=== PATIENT | male | born 1945 | race Caucasian/White ===

== ENCOUNTER → 2016-08-03 | Outpatient (CLI) | payer MEDICARE ==
--- NOTE | 2016-08-03 13:16 | CT ---
EXAMINATION TYPE: CT CHEST WO CON DATE OF EXAM: 08/03/2016 COMPARISON: CT June 27, 2013 HISTORY: COPD. asbestosis TECHNIQUE: Departmental supine and prone noncontrast end-inspiration HRCT protocol. CT DLP: 1249.5 mGycm Automated exposure control for dose reduction was used. FINDINGS: Airways: Normal in caliber and morphology. Lung parenchyma: There is no groundglass opacity to suggest active alveolitis. There is no mosaic per fusion pattern. There is no consolidation or major atelectasis. Also, there is no end-stage honeycomb lung or other cicatrizing change. Bilateral scattered lung nodules are redemonstrated, the largest two situated in the right mid lung zone and measuring 9 mm and 7.5 mm. These are seen on the prior CT of 3 years ago; they appear to be unaltered and are likely to be granulomas. Mediastinum: There are scattered calcifications in the mediastinum, consistent with granulomas. There are no enlarged lymph nodes. No cardiomegaly. Pericardial effusion is negative. Mediastinal contents are otherwise unremarkable. Pleural spaces: There are a few scattered subtle areas of focal pleural thickening without calcificat ion, which are stable in appearance when compared to the CT from 3 years ago. There are no pleural ef fusions. Soft tissues: Splenic ossifications are noted, consistent with granulomas. No other findings. Skeletal structures: No focal lesions. IMPRESSION: 1. NO HRCT EVIDENCE OF ACUTE OR CHRONIC LUNG PARENCHYMAL PROCESS. 2. STABLE APPEARING SUBCENTIMETER PULMONARY NODULES AND SUBTLE MULTIFOCAL PLEURAL THICKENING.
== END | disposition home or self-care (01) ==
LOC: RADCTMAIN 09:14
PROVIDERS: ATTEND Internal Medicine Critical Care Medicine
DX: J92.9 Pleural plaque without asbestos (principal); R91.1 Solitary pulmonary nodule
CPT/HCPCS: 71250

== ENCOUNTER → 2016-11-02 | Outpatient (CLI) | payer MEDICARE ==
--- NOTE | 2016-11-02 07:57 | XR ---
EXAMINATION TYPE: XR chest 2V DATE OF EXAM: 11/02/2016 COMPARISON: Chest x-ray August 03, 2016. Chest x-ray December 19, 2013. HISTORY: History of COPD with fever and body aches. TECHNIQUE: Frontal and lateral views of the chest are obtained. FINDINGS: Background mild chronic emphysematous change is redemonstrated. There is no focal air spac e opacity, pleural effusion, or pneumothorax seen. Scattered small nodules seen on high resolution C T are less well seen on plain films The cardiac silhouette size remains within normal limits. The o sseous structures are intact. IMPRESSION: Chronic changes without acute infiltrate identified.
== END | disposition home or self-care (01) ==
LOC: RADXRMAIN 07:34
PROVIDERS: ATTEND Physician Assistant
DX: R91.8 Other nonspecific abnormal finding of lung field (principal); R50.9 Fever, unspecified
CPT/HCPCS: 71020

== ENCOUNTER → 2017-03-07 | Outpatient (CLI) | payer MEDICARE ==
[2017-03-07 11:46] LABS: Blood Urea Nitrogen 20 mg/dL (9-20)
== END | disposition home or self-care (01) ==
LOC: LABWHC1 10:59
PROVIDERS: ATTEND Physical Medicine & Rehabilitation
DX: Z01.812 Encounter for preprocedural laboratory examination (principal); N28.9 Disorder of kidney and ureter, unspecified; M25.552 Pain in left hip; M47.27 Other spondylosis with radiculopathy, lumbosacral region
CPT/HCPCS: 36415; 82565; 84520

== ENCOUNTER → 2017-03-25 | Outpatient (CLI) | payer MEDICARE ==
--- NOTE | 2017-03-25 13:45 | XR ---
EXAMINATION TYPE: XR chest 2V DATE OF EXAM: 03/25/2017 COMPARISON: 11/02/2016 HISTORY: Cough and congestion for 8 days TECHNIQUE: Frontal and lateral views of the chest are obtained. FINDINGS: There is no focal air space opacity, pleural effusion, or pneumothorax seen. The cardiac silhouette size is upper limits of normal. The osseous structures are intact. Incidentally noted pr ominent right epicardial fat pad. Pulmonary hyperinflation likely relates to underlying COPD. Mild mu ltilevel degenerative changes of the thoracic spine are noted. IMPRESSION: No acute cardiopulmonary process. Radiographic sequela of COPD.
== END | disposition home or self-care (01) ==
LOC: RADXRMAIN 13:12
PROVIDERS: ATTEND Family Medicine
DX: J44.9 Chronic obstructive pulmonary disease, unspecified (principal)
CPT/HCPCS: 71046

== ENCOUNTER → 2017-09-16 | Outpatient (CLI) | payer MEDICARE ==
--- NOTE | 2017-09-16 10:36 | US ---
EXAMINATION TYPE: US carotid duplex BILAT DATE OF EXAM: 09/16/2017 COMPARISON: NONE CLINICAL HISTORY: I10 Hypertension, R42 Dizziness. Pt states dizziness, left arm numbness EXAM MEASUREMENTS: RIGHT: Peak Systolic Velocity (PSV) cm/sec ----- Right CCA: 80.0 ----- Right ICA: 88.8 ----- Right ECA: 88.8 ICA/CCA ratio: 1.1 RIGHT: End Diastole cm/sec ----- Right CCA: 13.6 ----- Right ICA: 27.1 ----- Right ECA: 9.5 LEFT: Peak Systolic Velocity (PSV) cm/sec ----- Left CCA: 88.8 ----- Left ICA: 98.7 ----- Left ECA: 88.8 ICA/CCA ratio: 1.1 LEFT: End Diastole cm/sec ----- Left CCA: 15.0 ----- Left ICA: 39.2 ----- Left ECA: 7.3 VERTEBRALS (direction of flow): Right Vertebral: Antegrade Left Vertebral: Antegrade Rhythm: Normal No significant stenosis seen, Incidental finding right thyroid nodule= 2.2 cm IMPRESSION: 1. Mild degree of grayscale atheromatous plaquing with no sonographically evident hemodynamically sig nificant stenosis within either visualized carotid arterial system. 2. Incidentally noted right thyroid 2.2 cm nodule that could be fully characterized with thyroid ultr asound.
--- NOTE | 2017-09-16 10:39 | XR ---
EXAMINATION TYPE: XR cervical spine limited DATE OF EXAM: 09/16/2017 TECHNIQUE: Frontal, lateral, and open mouth view of the cervical spine are obtained. HISTORY: I10 Hypertension, R42 Dizziness COMPARISON: None FINDINGS: The cervical spine is visualized in its entirety from C1 thru the top of T1 level, it is s atisfactory in alignment without evidence of acute fracture or dislocation. There is straightening of usual cervical lordosis. Intervertebral disc space narrowing is seen at C5-C6 and to a lesser degree at C6-C7. There is multilevel degenerative disc disease demonstrated as anterior osteophytes, endpla te sclerosis, facet arthropathy and uncovertebral hypertrophy. Overall this is moderate in degree. Th e pre-vertebral soft tissue appears within normal limits, inferiorly upper limits of normal. The C1- C2 articulation is within normal limits on the open mouth view. IMPRESSION: 1. No acute fracture or dislocation is seen in the cervical spine. 2. Moderate multilevel degenerative disc disease of the cervical spine most pronounced at C5-C6 and C 6-C7.
== END | disposition home or self-care (01) ==
LOC: RADXRMAIN 09:31
PROVIDERS: ATTEND Family Medicine
DX: M50.322 Other cervical disc degeneration at C5-C6 level (principal); I65.23 Occlusion and stenosis of bilateral carotid arteries
CPT/HCPCS: 72040; 93880

== ENCOUNTER → 2017-09-19 | Outpatient (CLI) | payer MEDICARE ==
--- NOTE | 2017-09-19 10:54 | NM ---
EXAMINATION TYPE: SC stress cardiolite complete DATE OF EXAM: 09/19/2017 COMPARISON: NONE HISTORY: Hypertension and dizziness per order. Additional history of diabetes, prior tobacco use, hyp ercholesteremia, COPD, family history of heart attack, and prior heart catheterization presents with difficulty in breathing and abnormal EKG with left arm numbness all per patient. TECHNIQUE: After the intravenous administration of 10 mCi Tc 99m Sestamibi - Rest images obtained 50 minutes post injection. The patient exercised using a BRADEN protocol and 1 minute prior to peak ex ercise was injected with 25.4 mCi Tc 99m Sestamibi - Stress images obtained 15 minutes post injection . FINDINGS: Targeted heart rate was achieved during performance of the study. Review of stress and rest SPECT slick ges demonstrates large area of diminished uptake centered in the posterior left ventricular wall exte nding into septum and lateral wall as well as cardiac apex felt to reflect large area of old infarct. There is no convincing evidence for reversible ischemia. Gated analysis shows overall ejection frac tion of 42 % diminished from the normal range. 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 Clinical and EKG correlation advised.
--- NOTE | 2017-09-19 10:58 | EST ---
EXERCISE STRESS AGE: 71 SEX: M HT: 5'11 WT: 230 pounds PROTOCOL: Stress Cardiolite Study. STAGE: II DURATION OF EXERCISE: 6:30 HEART RATE REST: 68 BLOOD PRESSURE REST: 135/72 MAXIMUM HEART RATE ACHIEVED: 136 MAXIMUM BLOOD PRESSURE: 184/86 85% MPHR: 125 100% MPHR: 147 METS: 7.9 INDICATIONS: Abnormal EKG and left arm numbness CLINICAL INFORMATION: Baseline EKG shows sinus rhythm with right bundle branch block. Patient exercised on Mango protocol for a total of 6.5 minutes achieving 8 METS, 92% of predicted maximal heart rate without chest pain or diagnostic ST-segment depression. Occasional PVCs were noted during exercise. CONCLUSIONS: 1. Average exercise tolerance. 2. Inconclusive EKG part of the stress test due to baseline EKG abnormalities. 3. Cardiolite portion of the stress test will be reported separately. MMODL / IJN: [id number] /
== END | disposition home or self-care (01) ==
LOC: RADNMMAIN 08:20
PROVIDERS: ATTEND Family Medicine
DX: I10 Essential (primary) hypertension (principal)
CPT/HCPCS: 93017; 78452; A9500

== ENCOUNTER → 2017-10-05 | Outpatient (CLI) | payer MEDICARE ==
[2017-10-05 06:57] LABS: HCT 42.1 % (39.0-53.0); HGB 13.6 gm/dL (13.0-17.5); MCH 28.5 pg (25.0-35.0); MCHC 32.4 g/dL (31.0-37.0); MCV 87.8 fL (80.0-100.0); Mean Platelet Volume 7.1; Platelet Count 354 k/uL (150-450); RDW 13.6 % (11.5-15.5); WBC 16.4 k/uL (3.8-10.6)
[2017-10-05 07:20] LABS: Anion Gap 9 mmol/L; Blood Urea Nitrogen 26 mg/dL (9-20); Carbon Dioxide 26 mmol/L (22-30); Chloride 108 mmol/L (98-107); Glucose 125 mg/dL (74-99); Magnesium 1.8 mg/dL (1.6-2.3); Potassium 4.7 mmol/L (3.5-5.1); Sodium 143 mmol/L (137-145)
== END | disposition home or self-care (01) ==
LOC: LABPAT 06:36
PROVIDERS: ATTEND Internal Medicine Interventional Cardiology
DX: Z01.812 Encounter for preprocedural laboratory examination (principal); I10 Essential (primary) hypertension; E11.9 Type 2 diabetes mellitus without complications; E78.2 Mixed hyperlipidemia
CPT/HCPCS: 36415; 80051; 82565; 82947; 83735; 84520; 85027

== ENCOUNTER 2017-10-12 09:51 | Day surgery (SDC) | payer MEDICARE ==
[2017-10-06 14:45] VITALS: BMI 33.0
[~2017-10-12 09:51] MED LIST: ALPRAZolam 0.25 MG TAB PO PRN; ALPRAZolam 0.5 MG TAB PO PRN; ASPIRIN 325 MG TAB PO STA; ATORVASTATIN 80 MG TAB PO STA; NITROGLYCERIN SL TABS 0.4 MG TAB SUBLINGUAL PRN; SODIUM CHLORIDE 0.9% 1,000 ML in EMPTY BAG 1 BAG IV ONE
[2017-10-12] MEDS ORDERED: METOPROLOL TARTRATE 12.5 MG TAB PO STA (10:28)
[2017-10-12] MEDS ORDERED: LOSARTAN 50 MG TAB PO STA (10:28)
[2017-10-12 10:43] VITALS: RESP 16; TEMP 97.6
[2017-10-12 10:57] LABS: Basophils % (A) 1 %; Eosinophils # (A) 0.2 k/uL (0-0.7); Eosinophils % (A) 2 %; HCT 44.4 % (39.0-53.0); HGB 14.1 gm/dL (13.0-17.5); Lymphocytes # (A) 1.7 k/uL (1.0-4.8); Lymphocytes % (A) 20 %; MCH 28.1 pg (25.0-35.0); MCHC 31.8 g/dL (31.0-37.0); MCV 88.3 fL (80.0-100.0); Monocytes # (A) 0.8 k/uL (0-1.0); Monocytes % (A) 9 %; Neutrophils # (A) 5.8 k/uL (1.3-7.7); Neutrophils % (A) 66 %; Platelet Count 282 k/uL (150-450); RBC 5.03 m/uL (4.30-5.90); RDW 13.6 % (11.5-15.5); WBC 8.8 k/uL (3.8-10.6)
[2017-10-12] MEDS ORDERED: diphenhydrAMINE 50 MG/ML 1 ML VIAL ONE (11:48)
[2017-10-12] MEDS ORDERED: MIDAZOLAM 2 MG/2 ML VIAL ONE (11:48)
[2017-10-12] MEDS ORDERED: LIDOCAINE 1% INJ 10MG/ML (20 ML MDV) ONE (11:48)
[2017-10-12] MEDS ORDERED: VERAPAMIL 2.5 MG/ML 2 ML AMP ONE (11:48)
[2017-10-12] MEDS ORDERED: diphenhydrAMINE 50 MG/ML 1 ML VIAL IM ONE (12:06)
[2017-10-12] MEDS ORDERED: LIDOCAINE 1% INJ 10MG/ML (20 ML MDV) SQ ONE (12:06)
[2017-10-12] MEDS ORDERED: MIDAZOLAM 2 MG/2 ML VIAL IVP ONE (12:07)
[2017-10-12] MEDS ORDERED: VERAPAMIL SYRINGE (5 MG/10 ML) INTRAARTER ONE (12:08)
[2017-10-12] MEDS ORDERED: HEPARIN SODIUM 1,000 UN/ML (10ML VL) IVPB ONE (12:11)
[2017-10-12] MEDS ORDERED: IOPAMIDOL-370 100ML BTL INJ ONE (12:22)
[2017-10-12] MEDS ORDERED: RX INFO: IV CONTRAST WAS GIVEN 1 EACH MISC MISCELLANE PRN (12:37)
[2017-10-12] MEDS ORDERED: SODIUM CHLORIDE 0.9% 1,000 ML IV SCH (12:45)
--- NOTE | 2017-10-12 16:30 | CC ---
CARDIAC CATHETERIZATION REPORT DATE OF SERVICE: 10/12/2017 PROCEDURE: Left heart catheterization, coronary angiography and left ventriculography. PERFORMED BY: Dr. Gerald Suggs. Moderate conscious sedation time was 21 minute. Patient was administered Versed and Benadryl. His oxygen saturation, hemodynamics and EKG were monitored closely. CLINICAL INFORMATION: Mr. Afshin Garza is a 72-year-old gentleman with type 2 diabetes, hypertension, history of non-Hodgkin's lymphoma, hyperlipidemia, who had an are unremarkable cardiac cath in December 2013, presented to the hospital with episode of chest pain and then went on to have an abnormal stress test with inferoposterior area of fixed defect with hypokinesia, was therefore advised cardiac catheterization. There was concern that he may have ischemia or infarction in this region. Risks, benefits, options were explained and patient was brought in for the procedure electively. PROCEDURE NOTE: Under strict aseptic precautions and local anesthesia, a 6-Emirati introducer was placed in the right radial artery. Using a JR 4 and JL 3.5 diagnostic catheters of 5-Emirati caliber I performed coronary angiography and a pigtail catheter was used to perform an LV-gram. The patient tolerated procedure well without complication. The sheath was taken out and TR band applied as per protocol. Good hemostasis was secured. Saturation in the fingers of the right hand was 94%. CARDIAC CATHETERIZATION FINDINGS: The left ventricular end-diastolic pressure was 12 mmHg and there was no gradient across aortic valve. CORONARY ANGIOGRAPHY FINDINGS: RIGHT CORONARY ARTERY: Technically a small nondominant vessel has no significant disease, has minor irregularities and supplies a limited amount of myocardium. LEFT MAIN CORONARY ARTERY: This is a short patent disease-free vessel that bifurcates into LAD and circumflex. LEFT ANTERIOR DESCENDING CORONARY ARTERY: Good caliber vessel extends along the anterior wall gives off septal and diagonal branches runs all the way to the apex supplying a sizable amount of myocardium. No significant disease is noted in the LAD system. LEFT POSTERIOR CIRCUMFLEX CORONARY ARTERY : Technically this is a very dominant vessel, gives off a small first obtuse marginal. There is a second obtuse marginal which is large in caliber and distribution, runs laterally, tortuous, supplies a fairly substantial amount of myocardium. The continuation of circumflex in the AV groove is free of significant disease and then distally it trifurcates into 3 different branches all of which have minor irregularities. No significant disease. The entire circumflex system is dominant and has no significant disease. LEFT VENTRICULOGRAM: This was performed in 30 degree HOANG projection revealed left ventricle is of normal size with good systolic function without segmental wall motion abnormality. Ejection fraction is about 60% by visual inspection. There is no mitral regurgitation. FINAL IMPRESSION: This patient has a left dominant system, normal filling pressures. Ejection fraction of 60%. No significant obstructive disease is noted. Findings were discussed with the patient and his son. He will be discharged later on today if stable. Results were also communicated by telephone with Dr. Ewing's physician assistant refinery operator. MMCHARBELL / IJN: [id number] /
[2017-10-12 16:36] VITALS: BP 145/77; PULSE 75
[2017-10-12 17:06] LABS: Glucose,Whole Blood 203 mg/dL (75-99)
[2017-10-12 17:06] LABS: Glucose,Whole Blood 123 mg/dL (75-99)
== END 2017-10-12 17:38 | disposition home or self-care (01) ==
LOC: CATHCVL 09:51
PROVIDERS: ATTEND Internal Medicine Interventional Cardiology
DX: I77.1 Stricture of artery (principal); R94.39 Abnormal result of other cardiovascular function study; R07.89 Other chest pain; E78.5 Hyperlipidemia, unspecified; E78.00 Pure hypercholesterolemia, unspecified; E11.9 Type 2 diabetes mellitus without complications; Z87.891 Personal history of nicotine dependence; Z88.0 Allergy status to penicillin; Z88.8 Allergy status to other drugs, medicaments and biological substances; Z85.72 Personal history of non-Hodgkin lymphomas; I10 Essential (primary) hypertension; Z79.84 Long term (current) use of oral hypoglycemic drugs; Z79.82 Long term (current) use of aspirin; Z79.899 Other long term (current) drug therapy
CPT/HCPCS: 93458; 85025; C1894; J2250; J1200; J2001; J1644; Q9967

== ENCOUNTER → 2019-07-10 | Outpatient (CLI) | payer MEDICARE | END | disposition home or self-care (01) | LOC: LABWHC1 09:11 | PROVIDERS: ATTEND Orthopaedic Surgery Hand Surgery | DX: U07.1 COVID-19 (principal) | CPT/HCPCS: 87635 ==

== ENCOUNTER → 2019-07-30 | Outpatient (CLI) | payer MEDICARE ==
[2019-07-30 09:02] LABS: Appearance,Urine Clear (Clear); Bilirubin,Urine Negative (Negative); Blood,Urine Negative (Negative); Color,Urine Light Yellow; Glucose,Urine (UA) Negative (Negative); Ketones,Urine Negative (Negative); Leukocyte Esterase,Urine Negative (Negative); Nitrite,Urine Negative (Negative); PH, Urine 5.5 (5.0-8.0); Protein,Urine Negative (Negative); Specific Gravity,Urine 1.017 (1.001-1.035); Urobilinogen,Urine <2.0 mg/dL (<2.0)
[2019-07-30 09:09] LABS: Partial Thromboplastin Time 25.3 sec (22.0-30.0); Prothrombin Time 10.6 sec (9.0-12.0)
--- NOTE | 2019-07-30 09:09 | XR ---
EXAMINATION TYPE: XR chest 2V DATE OF EXAM: 07/30/2019 COMPARISON: 03/25/2017 HISTORY: Presurgical evaluation TECHNIQUE: Frontal and lateral views of the chest are obtained. FINDINGS: Minimal strand-like linear densities at the lung bases There is no focal air space opacity , pleural effusion, or pneumothorax seen. Flattening the diaphragms is seen suggesting underlying CHIP MUCKER D. The cardiac silhouette size is within normal limits. The osseous structures are intact. Moderate degenerative disc disease of the thoracic spine. IMPRESSION: Strand-like densities at the lung bases favor subsegmental atelectasis. Radiographic seq uela of underlying COPD.
[2019-07-30 09:13] LABS: Basophils % (A) 0 %; Eosinophils # (A) 0.1 k/uL (0-0.7); Eosinophils % (A) 1 %; HCT 41.9 % (39.0-53.0); Lymphocytes # (A) 1.7 k/uL (1.0-4.8); Lymphocytes % (A) 21 %; MCH 29.8 pg (25.0-35.0); MCHC 33.4 g/dL (31.0-37.0); MCV 89.5 fL (80.0-100.0); Mean Platelet Volume 7.4; Monocytes # (A) 0.5 k/uL (0-1.0); Monocytes % (A) 6 %; Neutrophils # (A) 5.5 k/uL (1.3-7.7); Neutrophils % (A) 69 %; Platelet Count 277 k/uL (150-450); RBC 4.68 m/uL (4.30-5.90); RDW 13.3 % (11.5-15.5); WBC 7.9 k/uL (3.8-10.6)
[2019-07-30 09:16] LABS: African American GFR (CKD) >90 (>60 ml/min/1.73 sqM); Anion Gap 8 mmol/L; Blood Urea Nitrogen 25 mg/dL (9-20); Calcium 9.7 mg/dL (8.4-10.2); Carbon Dioxide 25 mmol/L (22-30); Chloride 104 mmol/L (98-107); Glucose 130 mg/dL (74-99); Non-African American GFR(CKD) >90 (>60 ml/min/1.73 sqM); Sodium 137 mmol/L (137-145)
== END | disposition home or self-care (01) ==
LOC: LABPAT 08:08
PROVIDERS: ATTEND Orthopaedic Surgery Orthopaedic Surgery of the Spine
DX: Z01.818 Encounter for other preprocedural examination (principal); J44.9 Chronic obstructive pulmonary disease, unspecified; Z79.01 Long term (current) use of anticoagulants
CPT/HCPCS: 36415; 71046; 80048; 81003; 85025; 85610; 85730; 87070

== ENCOUNTER 2019-08-08 09:08 | Observation (INO) | payer MEDICARE ==
[2019-08-06 16:12] VITALS: BMI 34.0
[~2019-08-08 09:08] MED LIST changes: -ALPRAZolam 0.25 MG TAB PO PRN; -ALPRAZolam 0.5 MG TAB PO PRN; -ASPIRIN 325 MG TAB PO STA; -ATORVASTATIN 80 MG TAB PO STA; -NITROGLYCERIN SL TABS 0.4 MG TAB SUBLINGUAL PRN; +ONDANSETRON 4 MG/2 ML VIAL IVP ONE; -SODIUM CHLORIDE 0.9% 1,000 ML in EMPTY BAG 1 BAG IV ONE; +SODIUM CHLORIDE 0.9% IRRIGATIO 1,000 ML IRRIGATION ONE; +fentaNYL (PF) 50 MCG/ML 2 ML AMP IV PRN
[2019-08-08] MEDS: LACTATED RINGERS 1,000 ML IV SCH (09:49)
[2019-08-08] MEDS ORDERED: LIDOCAINE 1% (10MG/ML) FOR IV START INTRADERMA ONE (09:49)
[2019-08-08 09:52] LABS: Glucose,Whole Blood 137 mg/dL (75-99)
[2019-08-08] MEDS ORDERED: LACTATED RINGERS 1,000 ML IV ONE ×3 (10:30→14:43)
[2019-08-08] MEDS ORDERED: PHENYLEPHRINE-0.9% NACL SYG 1 MG/10 ML SYRINGE ONE (11:17)
[2019-08-08] MEDS ORDERED: GLYCOPYRROLATE 0.2 MG/ML 2 ML VIAL ONE (11:17)
[2019-08-08] MEDS ORDERED: ceFAZolin 1,000 MG VIAL ONE (11:17)
[2019-08-08] MEDS ORDERED: SUCCINYLCHOLINE CHLORIDE 100 MG/5 ML SYR IV ONE (11:17)
[2019-08-08] MEDS ORDERED: WATER FOR INJECTION, STERILE 10 ML VIAL IV ONE (11:17)
[2019-08-08] MEDS ORDERED: LIDOCAINE 1% INJ 10MG/ML (20 ML MDV) ONE (11:17)
[2019-08-08] MEDS ORDERED: fentaNYL (PF) 50 MCG/ML 2 ML AMP ONE (11:17)
[2019-08-08] MEDS ORDERED: PROPOFOL 10 MG/ML 20 ML VIAL IV ONE (11:17)
[2019-08-08] MEDS ORDERED: SODIUM CHLORIDE 0.9% 100 ML BAG ONE (11:17)
[2019-08-08] MEDS ORDERED: ePHEDrine SULFATE/0.9% NACL/PF 50 MG/5 ML SYRINGE IV ONE (11:17)
[2019-08-08] MEDS ORDERED: HEPARIN SODIUM,PORCINE 10,000 UNIT/ML 1 ML VIAL ONE (11:17)
[2019-08-08] MEDS ORDERED: SODIUM CHLORIDE 0.9% IRRIG 1,000 ML BTL IRRIGATION ONE (11:17)
[2019-08-08] MEDS ORDERED: ROCURONIUM BROMIDE 10 MG/ML 5 ML VIAL IV ONE (11:17)
[2019-08-08] MEDS ORDERED: NEOSTIGMINE 1 MG/ML 10 ML VIAL ONE (11:17)
[2019-08-08] MEDS ORDERED: MIDAZOLAM 2 MG/2 ML VIAL ONE (11:17)
[2019-08-08] MEDS ORDERED: LIDOCAINE 0.5%-EPI 1:200,000 50 ML VIAL SQ ONE ×2 (11:51→11:58)
[2019-08-08] MEDS ORDERED: GELATIN SPONGE,ABSORB (LARGE) 1 EACH SPONGE TOPICAL ONE (11:57)
[2019-08-08] MEDS ORDERED: THROMBIN (BOVINE) 5,000 UNIT VIAL TOPICAL ONE (11:58)
[2019-08-08 15:09] LABS: Glucose,Whole Blood 157 mg/dL (75-99)
[2019-08-08] MEDS ORDERED: BUPIVACAINE (PF) 0.25% 30 ML VIAL SQ ONE ×2 (16:33)
--- NOTE | 2019-08-08 16:46 | FL ---
EXAMINATION TYPE: FL guidance operating room, XR lumbar spine 2 or 3V DATE OF EXAM: 08/08/2019 CLINICAL HISTORY: Low back pain. TECHNIQUE: Fluoroscopy. Intraoperative 2 views lumbar spine. COMPARISON: None. FINDINGS: Fluoroscopic guidance was provided during lumbar fusion surgical procedure performed by Dr Valentina Meyer. A total of 28 seconds of fluoroscopic time was utilized during the procedure and 8 spot int raoperative images are acquired. Intraoperative images acquired show localization at L4 level with eventual placement of posterior int erpedicular rods and screws from L1 through L5 levels bilaterally and artificial metallic disc materi al L4-L5 level. Satisfactory alignment is seen after surgical fixation on intraoperative images saved . IMPRESSION: As Above.
[2019-08-08] MEDS ORDERED: HYDROmorphone 1 MG/ML 1 ML SYRINGE IVP PRN (16:50)
[2019-08-08] MEDS ORDERED: MAGNESIUM HYDROXIDE 2,400 MG/10 ML CUP PO PRN (16:50)
[2019-08-08] MEDS ORDERED: BENZOCAINE/MENTHOL LOZENG 1 EACH LOZENGE MUCOUS MEM PRN (16:50)
[2019-08-08] MEDS ORDERED: HYDROcodone/APAP 5-325MG 1 EACH TAB PO PRN (16:50)
[2019-08-08] MEDS ORDERED: HYDROmorphone 0.5 MG/0.5 ML SYRINGE IVP PRN (16:50)
[2019-08-08] MEDS ORDERED: ONDANSETRON 4 MG/2 ML VIAL IVP PRN (16:50)
[2019-08-08] MEDS ORDERED: ALBUTEROL HFA INHALER INHALATION PRN (16:52)
--- NOTE | 2019-08-08 17:01 | P.OP ---
Date of Procedure: 08/08/19 Preoperative Diagnosis: Degenerative scoliosis, severe spinal stenosis L1-2 L2-3 and L3 4 L4 5, degenerative disc disease, lower extremity radiculopathy, lower extremity weakness, low back pain Postoperative Diagnosis: Same Anesthesia: GETA Pathology: none sent Condition: stable Disposition: PACU Description of Procedure: BRIEF OPERATIVE NOTE Preoperative Diagnosis:Degenerative scoliosis, severe spinal stenosis L1-2 L2-3 and L3 4 L4 5, degenerative disc disease, lower extremity radiculopathy, lower extremity weakness, low back pain Postoperative Diagnosis:Degenerative scoliosis, severe spinal stenosis L1-2 L2-3 and L3 4 L4 5, degenerative disc disease, lower extremity radiculopathy, lower extremity weakness, low back pain Procedure: Laminectomy and decompression with wide bilateral foraminotomy and partial medial facetectomy L1-2 L2-3 and L3 4 L4 5 Computer navigated Posterior lateral decompression and fusion L1-2 L2-3 and L3 4 L4 5 Transforaminal lumbar interbody fusion for a 360 fusion L3 4 L4 5 Discectomy for decompression L3 4 L4 5 Use of computer navigation for pedicle screw placement Placement of interbody graft L3 4 L4 5 Local autogenous bone grafting Use of Cell Saver Use of bone graft extenders Use of neuro monitoring Surgeon: Dr. Meyer Cigarette Making Machine Hopper Feeder: Miguel Angel Lau is present throughout the entire the case persistence during positioning, dissection, exposure, visualization, and all crucial elements of the case as well as closure. Anesthesia: General anesthesia per Dr. Rosenbaum Estimated blood loss: Approximately 1300 mL with 560 given back through Cell Saver Complications: None apparent Components implanted: K2M [place] pedicle screw system with use of 10 screws measuring 6.5 x 45 mm with 2 rods measuring 130 and 140 mm in length and one cross-link with a [place] interbody cage and [place] interbody peek cage. I also used 30 mL of DBX bone fibers as well as 10 mL of osteoamp bone graft substitute to supplement the local autogenous bone graft Disposition: To recovery room in good stable condition. OPERATIVE INDICATIONS The patient has had long-standing issues in their lower back and lower extremities. The patient has been having worsening of his pain in his back and his lower extremities over the past several years with significant worsening over the past several months. His found have a significant degenerative scoliosis of his lumbar spine with severe degenerative changes. He had severe spinal stenosis at L3 4 and L4 5 and moderate to severe stenosis L1-2 and L2-3. He was having symptoms of severe neurogenic claudication as well as radic ulopathy and weakness in his lower extremities. He was having worsening of his regular activities as well as his ability to do any sort of work. The patient has been through conservative treatment. He is not having any benefit despite aggressive conservative care. We discussed various treatment options including surgery, and the patient wishes to proceed with surgery We discussed the risk, patient's alternatives and benefits of surgery including but not limited to, risk of bleeding risk of infection, risk of need for further surgery, risk of decreased, loss of motion, muscle function, malunion nonunion, hardware failure, nerve damage, paralysis, heart attack, blindness and . OPERATIVE SUMMARY After discussing all the risks, patient alternatives and benefits at length, the patient elected to proceed with surgical intervention, signed informed consent, and presented for their procedure. The patient was seen and examined in the preoperative holding area and the surgical site was marked. The patient was given antibiotics and brought to the operating room. The patient was sedated and intubated by anesthesia in standard fashion. The patient was positioned on to the operating room table in a prone position on the appropriate frame which was well-padded and well molded. We were careful to pad any bony prominences and pressure points. We were careful to maintain the mónica ent's cervical spine and good neutral alignment and position throughout. The patient was prepped and draped in a normal standard fashion. An appropriate timeout and keystone protocol performed. We were able to proceed with the surgery. The local wound area was infiltrated with local anesthetic. An incision was made at the midline longitudinally over the appropriate levels. Dissection was taken down subcutaneously to the level of the fascia which was split midline from L1 to L5. Dissection was taken over the lamina bilaterally over the facet joints and to the transverse processes. Intraoperative x-ray was taken with C-arm which showed a marker at the appropriate level at L4 pedicle. With the appropriate level positively confirmed, we were able to proceed with placement of the pedicle holes and screws. The patient had all their twitches back. The wound was copiously irrigated and suctioned dry as had been done periodically throughout the case. I was able place a bony reference point at the spinous processes of L5 and take appropriate imaging with the C-arm for the Constant Contact computer navigation device. Was able to reference off the bony landmarks and used the computer navigation for placement of the pedicle screws from L1 to L5 bilaterally. Screw holes were established similarly at each level. A sharp awl was used to establish the starting hole. was able using appropriate tools with the computer navigation device. It was palpated and found to have good for de luna and good base. A monitored Steffee probe was used to establish the pedicle hole. It was positioned so there was no stimulation at 12 mA. The hole was palpated and found to have good for de luna and a good base. The hole was tapped with the appropriate sized tap. The transverse process or sacral ala was decorticated with a high-speed bur. I was able to use these holes to place the appropriate size screw and good alignment and good position with good bony purchase. When the screws were inserted there were stimulated, and found to have no stimulation at 20 mA. I was able to turn my attention to the decompression .decompression was performed with a combination of rongeurs, curettes, Kerrison rongeurs and a ball-tip feeler. All of the bone that was removed was stripped and morcellized for use as autogenous bone graft later in the case. Note was made of severe central and bilateral foraminal stenosis at each level most severely at L3 4 and L4 5. I was able get excellent wide central and bilateral foraminal decompression at each level. I was able to obtain good central decompression as well as wide bilateral foraminal decompression. There is no evidence of dural tear or leak. Good hemostasis was maintained. The wound was irrigated and suctioned dry. I performed a complete facetectomy at the appropriate level on the most symptomatic side On the left at L3 4 and L4 5. All bone that was removed was saved for local autogenous bone grafting. I was able to gain access to the disc space at the appropriate level/levels. Good hemostasis was maintained. I was able to protect the neurologic structures. A discectomy was performed. This provided further decompression. I was also able to perform complete discectomy and endplate preparation with a combination of pituitary curettes, rasps and scrapers. With the interbody space prepared, I was able to do appropriate sizing. The appropriate size cage was chosen. The wound was irrigated and suctioned dry. The interbody space was packed with local autogenous bone graft and a small portion of bone graft substitute, as was the cage itself. Protecting the soft tissue structures, I was able place the cage in good alignment and good position with good fit and fill. I was able place the interbody cages appropriately so that I was able get correction of the degenerative scoliosis Parminder return some alignment appropriately. There is no evidence of extrusion of the graft material nor protrusion of the interbody device. The wound was irrigated and suctioned dry. With the hardware intact, intraoperative x-ray was again taken which showed good alignment and position of the hardware at the appropriate levels From L1 L5. We were then able to measure, contour and place the rods and appropriate hardware bilaterally. I was able to place capcrews, tighten them down, and torque them off appropriately. With this intact I was able to place the loca autogenous bone graft with additional bone graft enhancer as necessary into the posterior lateral gutters bilaterally. With the bone graft intact, a stable construct, and good decompression at the appropriate levels, we were able to proceed with closure. Good hemostasis was maintained. There is no evidence of dural tear or leak. The fascia was closed for a watertight closure. The subcutaneous tissue was closed over a superficial drain. The subcuticular tissue was closed with absorbable suture. The wound was cleaned and dried and dressed with the appropriate dressing. The drapes were broken down. The patient was gently rolled back onto their hospital bed being careful to maintain their cervical spine and good neutral alignment and position. They were woken up by anesthesia, extubated, and brought to the recovery room in good stable condition. The patient will be admitted to the hospital for appropriate postoperative care, medical management and monitoring. We will continue to follow them closely about the postoperative course.
[2019-08-08] MEDS: HYDROmorphone 0.5 MG/0.5 ML SYRINGE IVP PRN ×2 (17:04→17:11)
[2019-08-08] MEDS: ATORVASTATIN 10 MG TAB PO SCH (21:00)
[2019-08-08] MEDS: LOSARTAN 50 MG TAB PO SCH (21:00)
[2019-08-08] MEDS: metFORMIN 500 MG TAB PO SCH (21:00)
[2019-08-08] MEDS: SODIUM CHLORIDE 0.9% 1,000 ML IV SCH (21:01)
[2019-08-09 06:13] LABS: Glucose,Whole Blood 184 mg/dL (75-99)
[2019-08-09] MEDS: SODIUM CHLORIDE 0.9% 1,000 ML IV SCH (06:59)
[2019-08-09] MEDS: LACTATED RINGERS 1,000 ML IV SCH (06:59)
[2019-08-09 07:19] LABS: Basophils % (A) 0 %; Eosinophils % (A) 0 %; HCT 36.4 % (39.0-53.0); Lymphocytes # (A) 0.9 k/uL (1.0-4.8); Lymphocytes % (A) 6 %; MCH 30.2 pg (25.0-35.0); MCHC 32.9 g/dL (31.0-37.0); MCV 91.7 fL (80.0-100.0); Mean Platelet Volume 7.6; Monocytes % (A) 7 %; Neutrophils # (A) 12.4 k/uL (1.3-7.7); Neutrophils % (A) 86 %; Platelet Count 290 k/uL (150-450); RBC 3.97 m/uL (4.30-5.90); RDW 13.7 % (11.5-15.5); WBC 14.5 k/uL (3.8-10.6)
[2019-08-09 07:21] LABS: Glucose,Whole Blood 183 mg/dL (75-99)
[2019-08-09 07:26] LABS: Calcium 8.3 mg/dL (8.4-10.2); Potassium 5.3 mmol/L (3.5-5.1)
[2019-08-09 08:18] VITALS: RESP 16
[2019-08-09] MEDS: METOPROLOL TARTRATE 25 MG TAB PO SCH (08:20)
[2019-08-09] MEDS: MULTIVITAMINS, THERA 1 EACH TAB PO SCH (08:20)
[2019-08-09] MEDS: metFORMIN 500 MG TAB PO SCH ×2 (08:20→21:24)
[2019-08-09] MEDS: ASCORBIC ACID 500 MG TAB PO SCH (08:20)
[2019-08-09] MEDS: SENNOSIDES-DOCUSATE SODIUM 1 EACH TAB PO SCH (08:20)
[2019-08-09] MEDS: CYANOCOBALAMIN 500 MCG TAB PO SCH (08:21)
[2019-08-09] MEDS: HYDROcodone/APAP 5-325MG 1 EACH TAB PO PRN ×3 (08:21→19:27)
[2019-08-09] MEDS: APIXABAN 5 MG TAB PO SCH ×2 (08:21→21:23)
[2019-08-09] MEDS: CHOLECALCIFEROL 1,000 UNIT TAB PO SCH (08:21)
--- NOTE | 2019-08-09 09:33 | P.PN ---
Progress Note - Text Progress Note Date: 08/09/19 Postoperative day #1 Patient is seen and examined today at bedside. The patient has some pain around the surgical site as expected. Pain is being controlled with medication. He has already been up out of bed. He is tolerated his morning breakfast well. Physical Exam Afebrile with stable vital signs Abdomen is soft nontender. Chest has good excursion deep and space expiration The incision site is clean dry and intact. No erythema there is no purulence. There is some small bloody drainage in the drain but it is doing well. Extremities have not had neurologic change from prior to surgery. He has sustained dorsiflexion plantarflexion and EHL intact Calves and thighs were soft nontender without evidence of DVT. Assessment/Plan Postoperative day #1 status post decompression and fusion L1 to L5 for his degenerative scoliosis with severe spinal stenosis lower extremity neurogenic claudication and radiculopathy Patient is progressing as expected from the surgery. He is doing very well this morning and has been able to progress faster than expected thus far. We will continue to increase the patient's mobilization with therapy. We will continue pain control with oral or IV medications. He will have his Nichole removed today. He'll continue with his mobilization. We'll keep his drain intact until tomorrow morning. We'll continue to follow patient closely.
[2019-08-09 11:50] LABS: Glucose,Whole Blood 165 mg/dL (75-99)
--- NOTE | 2019-08-09 12:05 | P.CONS ---
History of Present Illness - Reason for Consult Consult date: 08/09/19 Medical management - History of Present Illness This is a 73-year-old male patient of Dr. Conti with past medical history of diabetes mellitus type 2, hypertension, hyperlipidemia, atrial fibrillation, obstructive sleep apnea, non-Hodgkin's lymphoma in remission, obstructive sleep apnea, paroxysmal atrial fibrillation on eliquis. Patient was brought in to the hospital under the care of Dr. Meyer status post decompression and fusion L1 to L5 for his degenerative scoliosis with severe spinal stenosis lower extremity neurogenic claudication and radiculopathy. Patient has had no postop complications. He is found sitting on the edge of the pen. Nichole catheter remains in. His pain as a #5 out of 10. He has been out of bed utilizing walker. He is eating with no nausea or vomiting, no abdominal pain. He denies any chest pain. He is to resume eliquis today. Nichole catheter to be removed. Review Of Systems: Constitutional: No fever, no chills, no night sweats. No weight change. No weakness, fatigue or lethargy. No daytime sleepiness. EENT: No headache. No blurred vision or double vision, no loss of vision. No loss of Hearing, no ringing in the ears, no dizziness. No nasal drainage or congestion. No epistaxis. No sore throat. Lungs: No shortness of breath, cough, no sputum production. No wheezing. Cardiovascular: No chest pain, no lower extremity edema. No palpitations. No paroxysmal nocturnal dyspnea. No orthopnea. No lightheadedness or dizziness. No syncopal episodes. Abdominal: No abdominal pain. No nausea, vomiting. No diarrhea. No cons tipation. No bloody or tarry stools.. No loss of appetite. Genitourinary: No dysuria, increased frequency, urgency. No urinary retention. Musculoskeletal: No myalgias. No muscle weakness, no gait dysfunction, no frequent falls. Reports back pain. No neck pain. Integumentary: No wounds, no lesions. No rash or pruritus. No unusual bruising. No change in hair or nails. Neurologic: No aphasia. No facial droop. No change in mentation. No head injury. No headache. No paralysis. No paresthesia. Psychiatric: No depression. No anxiety. No mood swings. Endocrine: No abnormal blood sugars. No weight change. No excessive sweating or thirst. No cold intolerance. Physical examination Gen: This is a 73-year-old male. He is found sitting on the edge of the bed and appears to be comfortable and in no acute distress. He is complaining of lumbar back pain. HEENT: Head is atraumatic, normocephalic. Pupils equal, round. Sclerae is anicteric. NECK: Supple. No JVD. No lymphadenopathy. No thyromegaly. LUNGS: Clear to auscultation. No wheezes or rhonchi. No intercostal retractions. HEART: Regular rate and rhythm. No murmur. ABDOMEN: Soft. Bowel sounds are present. No masses. No tenderness. BACK: Dressing is in place over the lower thoracic and lumbar areas. No breakthrough bleeding or drainage. There is a VALARIE drain in place with sanguineous drainage. EXTREMITIES: No pedal edema. No calf tenderness. NEUROLOGICAL: Patient is awake, alert and oriented x3. Cranial nerves 2 through 12 are grossly intact. Assessment and plan 1. Status post decompression and fusion L1 to L5 for his degenerative scoliosis with severe spinal stenosis lower extremity neurogenic claudication and radiculopathy. Nichole catheter to be removed. If needed patient will be started on Flomax if he has any retention. PT and OT to start working with the patient. Continue current pain management per orthopedic spine. 2. Diabetes mellitus type 2. Continue metformin 1000 mg twice daily, NovoLog scale before meals and at bedtime. 3. Paroxysmal atrial fibrillation. Patient has been resumed on eliquis 5 mg daily, metoprolol 25 mg daily. 4. Hypertension. Continue losartan 100 mg at bedtime, Lopressor. 5. Hyperlipidemia. Continue Lipitor 10 mg at bedtime. 6. Obstructive sleep apnea status post surgery, stable. 7. History of non-Hodgkin's lymphoma status post chemotherapy, in remission. 8. GI prophylaxis. Protonix. 9. DVT prophylaxis. Eliquis. 10. COVID-19 infection not present. Discharge plan: home Impression and plan of care have been directed as dictated by the signing physician. Angeles Rosado nurse practitioner acting as scribe for signing physician. Past Medical History Past Medical History: Atrial Fibrillation, Cancer, COPD, Diabetes Mellitus, Hyperlipidemia, Hypertension, Musculoskeletal Disorder, Sleep Apnea/CPAP/BIPAP Additional Past Medical History / Comment(s): 2009 NONHODGKINS LYMPHOMA-had chemo, PREV.HX OF SLEEP APNEA History of Any Multi-Drug Resistant Organisms: None Reported Past Surgical History: Cholecystectomy, Hernia Repair, Orthopedic Surgery Additional Past Surgical History / Comment(s): JACKI CARP.TUNNEL, LEFT THUMB BASAL JOINT, CYST ON NECK REMOVED X2, PORT A CATH IN AND OUT, SX FOR SLEEP APNEA, RT FOOT SX, cataracts removed, membrane surg. left eye, eyelid surg. Past Anesthesia/Blood Transfusion Reactions: No Reported Reaction Past Psychological History: No Psychological Hx Reported Smoking Status: Former smoker Past Alcohol Use History: None Reported Additional Past Alcohol Use History / Comment(s): quit smoking 24 yrs. ago, smoked for 38 yrs. up to 4ppd Past Drug Use History: None Reported Medications and Allergies Home Medications Medication Instructions Recorded Confirmed Type Atorvastatin [Lipitor] 10 mg PO HS 11/01/13 08/08/19 History metFORMIN HCL 1,000 mg PO BID 11/01/13 08/08/19 History Albuterol Inhaler (Mhu) [Ventolin 1 - 2 puff INHALATION RT-Q6H PRN 10/06/17 08/08/19 History Hfa Inhaler] Ascorbic Acid [Vitamin C] 500 mg PO DAILY 10/06/17 08/06/19 History Cholecalciferol [Vitamin D3] 1,000 unit PO DAILY 10/06/17 08/06/19 History Losartan Potassium 100 mg PO HS 10/06/17 08/08/19 History Metoprolol Tartrate [Lopressor] 25 mg PO QAM 10/06/17 08/08/19 History Multivitamins, Thera [Multivitamin 1 tab PO DAILY 10/06/17 08/06/19 History (formulary)] Apixaban [Eliquis] 5 mg PO BID 08/06/19 08/06/19 History Cyanocobalamin (Vitamin B-12) 1,000 mcg PO DAILY 08/06/19 08/06/19 History [Vitamin B-12] Allergies Allergy/AdvReac Type Severity Reaction Status Date / Time niacin Allergy "LIGHTHEADE Verified 08/06/19 15:16 [From Niaspan D" Extended-Release] testosterone [From Axiron] Allergy ELEVATED Verified 08/06/19 15:16 B/P amoxicillin AdvReac Diarrhea Verified 08/06/19 15:16 tamsulosin AdvReac numbness Verified 08/06/19 15:17 in arm Physical Exam Vitals: Vital Signs Temp Pulse Pulse Pulse Resp BP Pulse Ox 08/09/19 07:04 97.4 F L 85 16 116/67 96 08/09/19 01:36 97.6 F 83 18 101/58 95 08/08/19 23:57 18 08/08/19 21:01 97.6 F 89 96/59 95 08/08/19 20:46 80 105/67 96 08/08/19 20:31 84 105/65 92 L 08/08/19 20:16 81 110/70 91 L 08/08/19 20:01 95 101/66 97 08/08/19 20:00 72 18 08/08/19 19:46 74 103/66 98 08/08/19 19:31 69 99/64 92 L 08/08/19 19:16 80 111/69 96 08/08/19 19:01 63 107/69 94 L 08/08/19 18:17 72 18 119/63 93 L 08/08/19 18:01 74 18 122/63 93 L 08/08/19 17:45 70 18 119/69 99 08/08/19 17:31 66 18 109/57 99 08/08/19 17:16 58 L 18 126/58 99 08/08/19 17:00 96.8 F L 75 20 122/65 100 08/08/19 09:33 96.4 F L 63 18 172/80 97 Intake and Output 08/08/19 08/09/19 08/09/19 22:59 06:59 14:59 Intake Total 100 600 Output Total 1655 220 Balance -1555 380 Intake: IV 100 Intake, IV Titration 600 Amount Sodium Chloride 0.9% 1, 600 000 ml @ 75 mls/hr IV . [id number] [facility] Rx#:[id number] Output: Drainage 220 Back 220 Urine 355 Estimated Blood Loss 1300 Other: Voiding Method Indwelling Catheter Indwelling Catheter Weight 105 kg Results CBC & Chem 7: 08/09/19 06:48 08/09/19 06:48 Labs: Abnormal Lab Results - Last 24 Hours (Table) 08/08/19 08/08/19 08/09/19 Range/Units 09:44 15:05 06:12 WBC (3.8-10.6) k/uL RBC (4.30-5.90) m/uL Hgb (13.0-17.5) gm/dL Hct (39.0-53.0) % Neutrophils # (1.3-7.7) k/uL Lymphocytes # (1.0-4.8) k/uL Potassium (3.5-5.1) mmol/L BUN (9-20) mg/dL Glucose (74-99) mg/dL POC Glucose (mg/dL) 137 H 157 H 184 H (75-99) mg/dL Calcium (8.4-10.2) mg/dL 08/09/19 08/09/19 08/09/19 Range/Units 06:48 06:48 07:05 WBC 14.5 H (3.8-10.6) k/uL RBC 3.97 L (4.30-5.90) m/uL Hgb 12.0 L (13.0-17.5) gm/dL Hct 36.4 L (39.0-53.0) % Neutrophils # 12.4 H (1.3-7.7) k/uL Lymphocytes # 0.9 L (1.0-4.8) k/uL Potassium 5.3 H (3.5-5.1) mmol/L BUN 30 H (9-20) mg/dL Glucose 184 H (74-99) mg/dL POC Glucose (mg/dL) 183 H (75-99) mg/dL Calcium 8.3 L (8.4-10.2) mg/dL
[2019-08-09] MEDS: INSULIN ASPART (NovoLOG) 100 UNIT/ML VIAL SQ SCH ×3 (12:50→21:23)
[2019-08-09 17:04] LABS: Glucose,Whole Blood 154 mg/dL (75-99)
[2019-08-09 20:52] LABS: Glucose,Whole Blood 146 mg/dL (75-99)
[2019-08-09] MEDS: LOSARTAN 50 MG TAB PO SCH (21:23)
[2019-08-09] MEDS: ATORVASTATIN 10 MG TAB PO SCH (21:23)
[2019-08-10] MEDS: HYDROcodone/APAP 5-325MG 1 EACH TAB PO PRN ×3 (00:21→12:21)
[2019-08-10 07:04] LABS: Glucose,Whole Blood 173 mg/dL (75-99)
[2019-08-10] MEDS: ASCORBIC ACID 500 MG TAB PO SCH (07:27)
[2019-08-10] MEDS: APIXABAN 5 MG TAB PO SCH (07:28)
[2019-08-10] MEDS: METOPROLOL TARTRATE 25 MG TAB PO SCH (07:28)
[2019-08-10] MEDS: SENNOSIDES-DOCUSATE SODIUM 1 EACH TAB PO SCH (07:28)
[2019-08-10] MEDS: metFORMIN 500 MG TAB PO SCH (07:28)
[2019-08-10] MEDS: MULTIVITAMINS, THERA 1 EACH TAB PO SCH (07:28)
[2019-08-10] MEDS: CYANOCOBALAMIN 500 MCG TAB PO SCH (07:28)
[2019-08-10] MEDS: CHOLECALCIFEROL 1,000 UNIT TAB PO SCH (07:29)
[2019-08-10] MEDS: INSULIN ASPART (NovoLOG) 100 UNIT/ML VIAL SQ SCH ×2 (07:29→12:22)
[2019-08-10] MEDS ORDERED: PANTOPRAZOLE 40 MG TABLET PO SCH (07:30)
[2019-08-10 07:35] VITALS: BP 123/69; PULSE 87; TEMP 97.8
[2019-08-10] MEDS ORDERED: TAMSULOSIN 0.4 MG CAP.ER.24H PO SCH (08:30)
--- NOTE | 2019-08-10 09:28 | P.DS ---
Providers Date of admission: 08/09/19 11:46 Expected date of discharge: 08/10/19 Attending physician: Kelli Meyer Consults: 08/08/19 16:50 Consult Physician Routine Consulting Provider: Truong Chance Reason/Comments: Medical management Do you want consulting provider notified?: Yes Primary care physician: Kyle Conti - Discharge Diagnosis(es) (1) Degenerative scoliosis in adult patient Current Visit: Yes Status: Acute (2) Lumbar degenerative disc disease Current Visit: Yes Status: Acute (3) Low back pain Current Visit: Yes Status: Acute (4) Radiculopathy with lower extremity symptoms Current Visit: Yes Status: Acute (5) Lower extremity weakness Current Visit: Yes Status: Acute (6) Lumbar spinal stenosis Current Visit: Yes Status: Acute (7) Diabetes mellitus Current Visit: Yes Status: Acute (8) Hypertension Current Visit: Yes Status: Acute (9) Hyperlipemia Current Visit: Yes Status: Acute (10) Paroxysmal atrial fibrillation Current Visit: Yes Status: Acute (11) Observed sleep apnea Current Visit: Yes Status: Acute (12) Non-Hodgkin lymphoma in remission Current Visit: Yes Status: Acute (13) S/P lumbar fusion Current Visit: Yes Status: Acute Hospital Course: This is a pleasant 73-year-old male who presented with degenerative scoliosis, severe spinal stenosis at L1-2, L2-3, L3-4, and L4-5, lumbar degenerative disc disease, lower extremity weakness and radiculopathy, and low back pain who failed outpatient conservative therapy. He was admitted for an open posterior lateral decompression and fusion at L1-2, L2-3, L3-4, and L4-5 with transforaminal lumbar interbody fusion at L3-4 and L4-5. The patient tolerated the procedure well and did well postoperatively. He has been able to ambulate with the assistance of a walker. He's had a walker delivered to the room for home use. His back pain has been adequately controlled with oral [place]. He is not requiring IV pain medication. He has been working with physical therapy to increase mobility and ambulation. He feels his lower extremity weakness and radiculopathy symptoms are improving. He is very happy with his progress and would like to be discharged home today. Condition on day of discharge stable. Patient will be discharged home. Patient was cleared preoperatively for surgery by Dr. Conti. Patient currently denies any nausea, vomiting, fever, or chills. Patient is eating and voiding freely without difficulty. Nursing states patient has had some residual urine post void and has been started on Flomax this morning. Patient has not had a bowel movement but does not feel he needs to have one. He has no abdominal pain. His belly is soft. He declines a prescription for medication to facilitate a bowel movement. Patient may shower Optiofoam dressing intact. Patient may remove Optiofoam dressing in 3 days and shower without a dressing at that time. Patient should refrain from driving until at least after their first follow-up appointment in the office. Patient should avoid excessive bending, lifting, and twisting; no lifting greater than 10 pounds. Patient is encouraged to use a walker to aid in ambulation as needed. MAPS has been reviewed today, 08/10/2019, with an Overall Overdose Risk Score of 150. An "Opiod Start Talking" Form has been signed by the patient and myself in place in the patient's chart. A prescription has been written for [place] 10 mg / 325 mg take one to tab every 4 hours as needed for pain, dispense #42. Patient should avoid anti-inflammatory medications over the next 6 weeks postoperatively. Patient may resume other previously prescribed home medications. Patient has a past medical history which includes diabetes mellitus type 2, hypertension, hyperlipidemia, atrial fibrillation, obstructive sleep apnea, and non-Hodgkin's lymphoma in remission. Patient is currently on Eliquis for proximal atrial fibrillation. Patient has been voiding without difficulty this morning but has had some residual urine since discontinuation of the miles catheter. He has been started on Flomax by medicine. Medicine will plan to prescribe Flomax at discharge. Medicine states the patient will be cleared for discharge he is voiding without difficulty. Physical Exam on day of discharge: Patient is awake, alert, and oriented 3 Vital signs stable Good chest excursion with deep inspiration and expiration Abdomen soft nontender No signs or symptoms of DVT; no calf pain Extensor hallucis longus, plantarflexion, and dorsiflexion positive sustained bilateral lower extremities Patient is able to perform active range of motion bilateral lower extremities without difficulty Incision is dry and intact with one small spot of dried blood; no erythema, purulence, or signs of infection Hemovac drain is removed during physical exam Optiofoam dressing intact Procedures: Open posterior lateral decompression and fusion at L1-2, L2-3, L3-4, and L4-5 with transforaminal lumbar interbody fusion at L3-4 and L4-5 Patient Condition at Discharge: Stable Plan - Discharge Summary Discharge Rx Participant: Yes New Discharge Prescriptions: New HYDROcodone/APAP 10-325MG [[place] 10] 1 each PO Q4H PRN #42 tab PRN Reason: Pain No Action metFORMIN HCL 1,000 mg PO BID Atorvastatin [Lipitor] 10 mg PO HS Cholecalciferol [Vitamin D3] 1,000 unit PO DAILY Ascorbic Acid [Vitamin C] 500 mg PO DAILY Multivitamins, Thera [Multivitamin (formulary)] 1 tab PO DAILY Metoprolol Tartrate [Lopressor] 25 mg PO QAM Losartan Potassium 100 mg PO HS Albuterol Inhaler (Mhu) [Ventolin Hfa Inhaler] 1 - 2 puff INHALATION RT-Q6H PRN PRN Reason: Shortness Of Breath Apixaban [Eliquis] 5 mg PO BID Cyanocobalamin (Vitamin B-12) [Vitamin B-12] 1,000 mcg PO DAILY Discharge Medication List Atorvastatin [Lipitor] 10 mg PO HS 11/01/13 [History] metFORMIN HCL 1,000 mg PO BID 11/01/13 [History] Albuterol Inhaler (Mhu) [Ventolin Hfa Inhaler] 1 - 2 puff INHALATION RT-Q6H PRN 10/06/17 [History] Ascorbic Acid [Vitamin C] 500 mg PO DAILY 10/06/17 [History] Cholecalciferol [Vitamin D3] 1,000 unit PO DAILY 10/06/17 [History] Losartan Potassium 100 mg PO HS 10/06/17 [History] Metoprolol Tartrate [Lopressor] 25 mg PO QAM 10/06/17 [History] Multivitamins, Thera [Multivitamin (formulary)] 1 tab PO DAILY 10/06/17 [History] Apixaban [Eliquis] 5 mg PO BID 08/06/19 [History] Cyanocobalamin (Vitamin B-12) [Vitamin B-12] 1,000 mcg PO DAILY 08/06/19 [History] HYDROcodone/APAP 10-325MG [[place] 10] 1 each PO Q4H PRN #42 tab 08/10/19 [Rx] Follow up Appointment(s)/Referral(s): [facility] [NON-STAFF] - As Needed (walker) Miguel Angel Mendez PAC [[employer] [employer]PER[employer]OR] - 2 Weeks (Patient may follow-up with Miguel Angel Mendez PA-C or Dr. Solomon Meyer at [facility] in 2-3 weeks following discharge. ) Patient Instructions/Handouts: Lumbar Spinal Fusion (DC) Activity/Diet/Wound Care/Special Instructions: 1. Patient may shower with optifoam dressing intact. 2. Patient may remove optifoam dressing and shower without a dressing at that time. 3. Patient is encouraged to use a walker to aid in ambulation as needed 4. Patient should refrain from driving until at least after their first follow- up appointment in the office. 5. Patient should avoid excessive bending, twisting, and lifting; no lifting greater than 10 pounds 6. Take medications as prescribed 7. Do not soak in tub Discharge Disposition: HOME SELF-CARE
--- NOTE | 2019-08-10 09:45 | P.PN ---
Subjective Progress Note Date: 08/10/19 This is a 73-year-old male patient of Dr. Conti with past medical history of diabetes mellitus type 2, hypertension, hyperlipidemia, atrial fibrillation, obstructive sleep apnea, non-Hodgkin's lymphoma in remission, obstructive sleep apnea, paroxysmal atrial fibrillation on eliquis. Patient was brought in to the hospital under the care of Dr. Meyer status post decompression and fusion L1 to L5 for his degenerative scoliosis with severe spinal stenosis lower extremity neurogenic claudication and radiculopathy. Patient has had no postop complications. He is found sitting on the edge of the pen. Nichole catheter remains in. His pain as a #5 out of 10. He has been out of bed utilizing walker. He is eating with no nausea or vomiting, no abdominal pain. He denies any chest pain. He is to resume eliquis today. Nichole catheter to be removed. 08/09: Patient is seen today in follow-up. He has had no postop consultations. Pain is controlled. He has worked well with physical therapy. Nichole catheter has been removed and he did have a residual of 360. Patient was started on Fl omax and a prescription will be sent to his pharmacy to continue this as an outpatient. Patient may be resumed on his home medications. He has been afebrile, heart rate 87, blood pressure 123/69, pulse ox 97% on room air. Blood sugars are running between 146 and 173. Patient is cleared for discharge from internal medicine. Review Of Systems: Constitutional: No fever, no chills, no night sweats. No weight change. No weakness, fatigue or lethargy. No daytime sleepiness. EENT: No headache. No blurred vision or double vision, no loss of vision. No loss of Hearing, no ringing in the ears, no dizziness. No nasal drainage or congestion. No epistaxis. No sore throat. Lungs: No shortness of breath, cough, no sputum production. No wheezing. Cardiovascular: No chest pain, no lower extremity edema. No palpitations. No paroxysmal nocturnal dyspnea. No orthopnea. No lightheadedness or dizziness. No syncopal episodes. Abdominal: No abdominal pain. No nausea, vomiting. No diarrhea. No constipation. No bloody or tarry stools.. No loss of appetite. Genitourinary: No dysuria, increased frequency, urgency. No urinary retention. Musculoskeletal: No myalgias. No muscle weakness, no gait dysfunction, no frequent falls. Reports back discomfort expected with surgery. No neck pain. Integumentary: No wounds, no lesions. No rash or pruritus. No unusual bruising. No change in hair or nails. Neurologic: No aphasia. No facial droop. No change in mentation. No head injury. No headache. No paralysis. No paresthesia. Psychiatric: No depression. No anxiety. No mood swings. Endocrine: No abnormal blood sugars. No weight change. No excessive sweating or thirst. No cold intolerance. Physical examination Gen: This is a 73-year-old male. He is found sitting on the edge of the bed and appears to be comfortable and in no acute distress. HEENT: Head is atraumatic, normocephalic. Pupils equal, round. Sclerae is anicteric. NECK: Supple. No JVD. No lymphadenopathy. No thyromegaly. LUNGS: Clear to auscultation. No wheezes or rhonchi. No intercostal retractions. HEART: Regular rate and rhythm. No murmur. ABDOMEN: Soft. Bowel sounds are present. No masses. No tenderness. BACK: Dressing is in place over the lower thoracic and lumbar areas. No breakthrough bleeding or drainage. There is a VALARIE drain in place with sanguineous drainage. EXTREMITIES: No pedal edema. No calf tenderness. NEUROLOGICAL: Patient is awake, alert and oriented x3. Cranial nerves 2 through 12 are grossly intact. Assessment and plan 1. Status post decompression and fusion L1 to L5 for his degenerative scoliosis with severe spinal stenosis lower extremity neurogenic claudication and radiculopathy. PT and OT to start working with the patient. Continue current pain management per orthopedic spine. 2. Diabetes mellitus type 2. Continue metformin 1000 mg twice daily, NovoLog scale before meals and at bedtime. 3. Paroxysmal atrial fibrillation. Patient has been resumed on eliquis 5 mg daily, metoprolol 25 mg daily. 4. Hypertension. Continue losartan 100 mg at bedtime, Lopressor. 5. Hyperlipidemia. Continue Lipitor 10 mg at bedtime. 6. Obstructive sleep apnea status post surgery, stable. 7. History of non-Hodgkin's lymphoma status post chemotherapy, in remission. 8. GI prophylaxis. Protonix. 9. DVT prophylaxis. Eliquis. 10. COVID-19 infection not present. 11. Mild urinary retention. Patient was started on Flomax this morning. Prescription will be sent to his pharmacy. Discharge plan: home Impression and plan of care have been directed as dictated by the signing physician. Angeles Rosaod nurse practitioner acting as scribe for signing physician. Objective - Vital Signs Vital signs: Vital Signs Temp 97.8 F 08/10/19 06:45 Pulse 87 08/10/19 06:45 Resp 16 08/10/19 06:45 BP 123/69 08/10/19 06:45 Pulse Ox 97 08/10/19 06:45 Intake & Output 08/09/19 08/10/19 08/10/19 18:59 06:59 18:59 Intake Total 50 Output Total 979 665 Balance -169 -242 Intake: IV 50 ceFAZolin 2 gm In Sodium 50 Chloride 0.9% 50 ml @ 100 mls/hr IVPB Q8HR [facility] Rx# :[id number] Output: Drainage 120 240 Back 120 240 Urine 350 425 Post Void Residual 275 Other: Voiding Method Urinal # Voids 1 - Labs CBC & Chem 7: 08/09/19 06:48 08/09/19 06:48 Labs: Abnormal Lab Results - Last 24 Hours (Table) 08/09/19 08/09/19 08/09/19 Range/Units 11:42 16:50 20:50 POC Glucose (mg/dL) 165 H 154 H 146 H (75-99) mg/dL 08/10/19 Range/Units 06:44 POC Glucose (mg/dL) 173 H (75-99) mg/dL
[2019-08-10 11:41] LABS: Glucose,Whole Blood 155 mg/dL (75-99)
== END 2019-08-10 13:30 | disposition home or self-care (01) ==
LOC: OR 09:08 → 4SSUR 16:44 → UNDOADMOB 08-09 11:46 → OBSVTOIN 08-09 11:46 → INTOOBSV 08-09 11:46 → OR 08-09 11:46 → UNDODISOB 08-10 13:30
PROVIDERS: ADMIT Orthopaedic Surgery Orthopaedic Surgery of the Spine; ATTEND Orthopaedic Surgery Orthopaedic Surgery of the Spine
DX: M51.16 Intervertebral disc disorders with radiculopathy, lumbar region (principal); M41.56 Other secondary scoliosis, lumbar region; M48.062 Spinal stenosis, lumbar region with neurogenic claudication; M47.26 Other spondylosis with radiculopathy, lumbar region; E11.9 Type 2 diabetes mellitus without complications; E78.5 Hyperlipidemia, unspecified; I48.0 Paroxysmal atrial fibrillation; I11.0 Hypertensive heart disease with heart failure; G47.33 Obstructive sleep apnea (adult) (pediatric); C85.90 Non-Hodgkin lymphoma, unspecified, unspecified site; R33.9 Retention of urine, unspecified; Z79.01 Long term (current) use of anticoagulants; Z79.84 Long term (current) use of oral hypoglycemic drugs; Z79.899 Other long term (current) drug therapy; Z92.21 Personal history of antineoplastic chemotherapy; Z87.891 Personal history of nicotine dependence; J44.9 Chronic obstructive pulmonary disease, unspecified; Z90.49 Acquired absence of other specified parts of digestive tract; Z98.890 Other specified postprocedural states; Z88.0 Allergy status to penicillin; Z88.8 Allergy status to other drugs, medicaments and biological substances; Z83.3 Family history of diabetes mellitus
CPT/HCPCS: 22800; 22853 ×2; 20936; 22630; 22632; 22842; 97116; 97161; 86891; 86900; 86901; 80048; 85025; 86850; 72100; G0378 ×2; P9022; C1713; J2250; J1644; J2710; J0690 ×3; J2405; J2001; J3010; J1170 ×2; J2370; J0330; J2704

== ENCOUNTER 2020-03-05 15:53 | Emergency (ER) | payer MEDICARE ==
[2020-03-05] MEDS ORDERED: ORPHENADRINE 30 MG/ML 2 ML VIAL IM STA (16:35)
[2020-03-05] MEDS ORDERED: KETOROLAC 15 MG/ML 1 ML VIAL IM STA (16:35)
--- NOTE | 2020-03-05 16:42 | ED ---
General Adult HPI - General Chief complaint: Back Pain/Injury Stated complaint: Back pain Time Seen by Provider: 03/05/20 16:11 Source: patient, RN notes reviewed Mode of arrival: wheelchair Limitations: no limitations - History of Present Illness Initial comments: 74-year-old male with a past medical history atrial fibrillation, COPD, diabetes mellitus, hyperlipidemia, hypertension, back surgery presents to the emergency room for a chief complaint of back pain. Patient had an open posterior lateral decompression and fusion at L1 to L2, L2 to L3, L3 to L4, and L4 to L5 about one year ago. States that a week ago history 150 pound was sliding off of her shower chair. States he put got on the floor but his knees against the wall and started pushing with his back to try to help her from sliding. States he had severe pain in his back for the past few days. Then today he reached down to pick summing up from the floor and pain worsened again. No bladder or bowel changes. No weakness of the lower extremity. Patient is able to ambulate. He states movement does worsen his pain. Denies fevers or chills.Patient has no other complaints at this time including shortness of breath, chest pain, abdominal pain, nausea or vomiting, headache, or visual changes. - Related Data Home Medications Medication Instructions Recorded Confirmed Atorvastatin [Lipitor] 10 mg PO HS 11/01/13 03/05/20 metFORMIN HCL 1,000 mg PO BID 11/01/13 03/05/20 Cholecalciferol [Vitamin D3] 1,000 unit PO HS 10/06/17 03/05/20 Multivitamins, Thera [Multivitamin 1 tab PO HS 10/06/17 03/05/20 (formulary)] RX: Losartan Potassium 100 mg PO DAILY 10/06/17 03/05/20 RX: Metoprolol Tartrate [Lopressor] 25 mg PO QAM 10/06/17 03/05/20 Apixaban [Eliquis] 5 mg PO BID 08/06/19 03/05/20 Cyanocobalamin (Vitamin B-12) 5,000 mcg PO DAILY 08/06/19 03/05/20 [Vitamin B-12] Acetaminophen [Tylenol] 1,000 mg PO Q4-6H PRN 03/05/20 03/05/20 Albuterol Sulfate [Ventolin HFA] 1 - 2 puff INHALATION RT-Q6H PRN 03/05/20 03/05/20 Ascorbic Acid [Vitamin C] 1,000 mg PO HS 03/05/20 03/05/20 Ibuprofen [Motrin Ib] 800 mg PO Q8H PRN 03/05/20 03/05/20 RX: traMADol HCL 50 mg PO ONCE PRN 03/05/20 03/05/20 Allergies Allergy/AdvReac Type Severity Reaction Status Date / Time niacin Allergy "LIGHTHEADE Verified 03/05/20 16:43 [From Niaspan D" Extended-Release] testosterone [From Axiron] Allergy ELEVATED Verified 03/05/20 16:43 B/P amoxicillin AdvReac Diarrhea Verified 03/05/20 16:43 Review of Systems ROS Statement: Those systems with pertinent positive or pertinent negative responses have been documented in the HPI. ROS Other: All systems not noted in ROS Statement are negative. 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 left eye, eyelid surg, spinal fusion L1-5, Past Anesthesia/Blood Transfusion Reactions: No Reported Reaction Past Psychological History: No Psychological Hx Reported Smoking Status: Former smoker Past Alcohol Use History: None Reported Past Drug Use History: None Reported General Exam Limitations: no limitations General appearance: alert, in no apparent distress Head exam: Present: atraumatic Eye exam: Present: normal appearance, PERRL, EOMI ENT exam: Present: normal exam, mucous membranes moist Neck exam: Present: normal inspection. Absent: tenderness, meningismus, full ROM Respiratory exam: Present: normal lung sounds bilaterally. Absent: respiratory distress, wheezes Cardiovascular Exam: Present: regular rate, normal rhythm, normal heart sounds GI/Abdominal exam: Present: soft, normal bowel sounds. Absent: distended, tenderness, guarding, rebound, rigid Extremities exam: Present: normal capillary refill (cap refill less than 2 seconds, DP and PT signals), other (Strength 5 out of 5 in the lower extremities. Sensation intact.) Back exam: Absent: CVA tenderness (R), CVA tenderness (L), vertebral tenderness Neurological exam: Present: alert, normal gait Course Vital Signs 03/05/20 16:00 Temperature 98.7 F Pulse Rate 81 Respiratory 16 Rate Blood Pressure 169/83 O2 Sat by Pulse 97 Oximetry Medical Decision Making - Medical Decision Making Vitals are stable. No red flag symptoms. Patient is able to get up off of the cot without any difficulty. He is able to ambulate. DP and PT signals with Doppler. Neurovascular status intact in lower extremities. X-ray of the lumbar spine was obtained. This showed no acute fracture or subluxation. There is moderate to severe degenerative changes. She was given Toradol and Norflex. He did have significant improvement of pain. When I went into the room patient is sitting up in bed stating his pain is nearly resolved although still hurts and he leans to the right. At this time I did speak with Dr. Meyer who will follow up with patient outpatient. Patient be given Tylenol 3 for any breakthrough pain at home. His daughter will be with him to monitor him with this and he is aware could make him drowsy, increase risk of falls and not to drive. Disposition Clinical Impression: Mechanical back pain Disposition: HOME SELF-CARE Condition: Good Instructions (If sedation given, give patient instructions): Acute Low Back Pain (ED) Additional Instructions: Please take Motrin and Tylenol for pain. If pain is severe take Tylenol 3. Make sure you do not take more than 1000 mg of Tylenol every 6 hours. Follow-up with your doctor. Return to the emergency room for any worsening symptoms. Is patient prescribed a controlled substance at d/c from ED?: No Referrals: Kyle Conti DO [Primary Care Provider] - 1-2 days Kelli Meyer DO [Doctor of Osteopathic Medicine] - 1-2 days Time of Disposition: 18:10
--- NOTE | 2020-03-05 17:17 | XR ---
Result: History: Worsening low back pain. Comparison: None available. Technique: 3 views of the lumbar spine. Findings: The bone mineralization is age-appropriate. Images of the lumbar spine demonstrate 5 lumbar-type vertebrae. There is no acute fracture or sublux ation. The vertebral body heights are preserved throughout the imaged lumbar spine. Prior L1-L5 post erior instrumented fusion with intervening body device at L4-5. The vertebral elements are in anatomi c alignment. There is multilevel moderate to severe disc and facet degenerative changes. Cholecystec jonah clips noted. Impression: No acute osseous abnormality. L1-L5 fusion with moderate to severe degenerative changes.
[2020-03-05] MEDS ORDERED: ACET/COD 300 MG/30 MG STARTER PACK 6 TAB BTL PO STA (18:11)
[2020-03-05 18:40] VITALS: BP 134/77; PULSE 72; RESP 18; TEMP 98.1
== END 2020-03-05 18:39 | disposition home or self-care (01) ==
LOC: EC 15:53
DX: M54.9 Dorsalgia, unspecified (principal); I48.91 Unspecified atrial fibrillation; J44.9 Chronic obstructive pulmonary disease, unspecified; E11.9 Type 2 diabetes mellitus without complications; E78.5 Hyperlipidemia, unspecified; I10 Essential (primary) hypertension; G47.30 Sleep apnea, unspecified; Z79.01 Long term (current) use of anticoagulants; Z79.1 Long term (current) use of non-steroidal anti-inflammatories (NSAID); Z79.84 Long term (current) use of oral hypoglycemic drugs; Z79.899 Other long term (current) drug therapy; Z87.891 Personal history of nicotine dependence; Z88.0 Allergy status to penicillin; Z88.1 Allergy status to other antibiotic agents; Z88.8 Allergy status to other drugs, medicaments and biological substances; Z85.72 Personal history of non-Hodgkin lymphomas; Z92.21 Personal history of antineoplastic chemotherapy; Z99.89 Dependence on other enabling machines and devices; Z98.1 Arthrodesis status
CPT/HCPCS: 99283 ×2; 96372 ×3; 72100; J2360; J1885

== ENCOUNTER → 2021-05-05 | Outpatient (CLI) | payer MEDICARE ==
--- NOTE | 2021-05-05 10:29 | US ---
EXAMINATION TYPE: US mass soft tissue chest/back DATE OF EXAM: 05/05/2021 COMPARISON: NONE CLINICAL HISTORY: 75-year-old male R19.00 ABDOMINAL MASS. Pt states palpable mass LLQ/Left flank area x 2 months. Pt denies pain, denies injury to area TECHNIQUE: Targeted ultrasound examination along the left lower quadrant/left flank at the patient's palpable site. FINDINGS: Sonography notes: At the patient's palpable site, there is an ill-defined solid area= 1.5 x 1.3 x 3.6 cm- fluid chann els visualized in this area Please note valsalva images taken and there is no change. IMPRESSION: Vague nodular echogenic area localized to the subcutaneous adipose layer. This area is estimated to b e 3.6 x 1.5 cm by the system validation engineer and there is some mild surrounding soft tissue edema. An area of fa t necrosis is possible. A fatty abdominal wall hernia through a tight defect is considered less likel y as the patient denies pain. Recommend clinical follow-up to ensure gradual and dilution. If the fin ding persists or enlarges, it can be rescanned or cross-sectional evaluation may be considered.
== END | disposition home or self-care (01) ==
LOC: RADUSWWP 07:59
PROVIDERS: ATTEND Family Medicine
DX: R19.00 Intra-abdominal and pelvic swelling, mass and lump, unspecified site (principal)

== ENCOUNTER → 2021-08-06 | Outpatient (CLI) | payer MEDICARE ==
--- NOTE | 2021-08-06 12:01 | US ---
EXAMINATION TYPE: US abdomen limited DATE OF EXAM: 08/06/2021 COMPARISON: 05/05/2021 CLINICAL HISTORY: 75-year-old male R19.00 PELVIC SWELLING. Technique: Targeted ultrasound examination along the patient's left lower quadrant palpable site. FINDINGS: Political Analyst notes: Patient unable to find the palpable on today's exam. Unable to reproduce previous vague area seen by ultrasound in April. IMPRESSION: Targeted scanning along the left lower quadrant site of palpable abnormality shows no discrete findin gs. Any persistent palpable site can be followed clinically. The patient was unable to identify the a omar at the time of the exam. If any enlargement, the area can be rescanned.
== END | disposition home or self-care (01) ==
LOC: RADUSWWP 07:19
PROVIDERS: ATTEND Surgery
DX: R19.09 Other intra-abdominal and pelvic swelling, mass and lump (principal)
CPT/HCPCS: 76705

== ENCOUNTER → 2022-10-14 | Outpatient (CLI) | payer MEDICARE ==
--- NOTE | 2022-10-14 11:02 | XR ---
EXAMINATION TYPE: XR chest 2V DATE OF EXAM: 10/14/2022 COMPARISON: 07/30/2019 HISTORY: Shortness of breath TECHNIQUE: Frontal and lateral views of the chest are obtained. FINDINGS: Scattered senescent parenchymal changes noted. Hyperinflation compatible with COPD. No evidence for infiltrate. No evidence for atelectasis. Heart size is stable. Mediastinal structures are stable and grossly unremarkable. No evidence for hilar prominence. Degenerative changes dorsal spine. IMPRESSION: 1. No evidence for acute pulmonary disease.
--- NOTE | 2022-10-14 11:04 | XR ---
EXAMINATION TYPE: XR abdomen 1V DATE OF EXAM: 10/14/2022 COMPARISON: NONE HISTORY: Pain TECHNIQUE: Single supine KUB image of the abdomen is obtained FINDINGS: Small bowel demonstrates no evidence for dilatation or air fluid levels. Gas and fecal material is seen in non-distended colon. No convincing evidence for pneumoperitoneum. No unusual calcifications. The lung bases are clear. The osseous structures are intact. As the operative changes lumbar spine. IMPRESSION: 1. Overall nonobstructive bowel gas pattern.
== END | disposition home or self-care (01) ==
LOC: RADXRMAIN 10:06
PROVIDERS: ATTEND Family Medicine
DX: R10.10 Upper abdominal pain, unspecified (principal); R06.02 Shortness of breath; Z87.891 Personal history of nicotine dependence
CPT/HCPCS: 71046; 74018

== ENCOUNTER → 2022-11-30 | Outpatient (CLI) | payer MEDICARE ==
--- NOTE | 2022-11-30 12:11 | XR ---
EXAMINATION TYPE: XR chest 2V DATE OF EXAM: 11/30/2022 12:06 PM COMPARISON: Chest radiographs from 10/14/2022 TECHNIQUE: XR chest 2V Frontal and lateral views of the chest. CLINICAL INDICATION:Male, 77 years old with history of J18.9 PNEUMONIA, UNSPECIFIED ORGANISM; FINDINGS: Lungs/Pleura: There is no evidence of pleural effusion, focal consolidation, or pneumothorax. Finding s of the hemidiaphragms suggesting underlying COPD. Pulmonary vascularity: Unremarkable. Heart/mediastinum: Cardiomediastinal silhouette is unremarkable. Musculoskeletal: Multiple level degenerative disc disease changes seen throughout the spine. Partial visualization of lumbar fusion hardware. IMPRESSION: 1. No acute cardiopulmonary disease/process. No significant change from prior examination. 2. Possible COPD.
== END | disposition home or self-care (01) ==
LOC: RADXRMAIN 11:42
PROVIDERS: ATTEND Family Medicine
DX: J18.9 Pneumonia, unspecified organism (principal)
CPT/HCPCS: 71046

== ENCOUNTER → 2023-02-02 | Outpatient (CLI) | payer MEDICARE ==
--- NOTE | 2023-02-03 07:55 | XR ---
EXAMINATION TYPE: XR lumbosacral spine min 4V DATE OF EXAM: 02/02/2023 COMPARISON: 03/05/2020 HISTORY: Lumbar spine pain TECHNIQUE: 5 view lumbar spine FINDINGS: There are 5 lumbar-type vertebral bodies. Pedicle screws and fixation rods are present L1 t hrough 05. Disc spacers present at L4-5. More subtle disc spacers present at L3-4. Vertebral body ali gnment is straightened. IMPRESSION: 1. Postsurgical fixation L1-L5
--- NOTE | 2023-02-03 08:00 | XR ---
EXAMINATION TYPE: XR Hip Bilateral Complete DATE OF EXAM: 02/02/2023 COMPARISON: None HISTORY: Pain TECHNIQUE: Two-view bilateral hips FINDINGS: Femoral heads articulate with the acetabulum. No acute fractures or dislocations are eviden t. Joint spaces are preserved. IMPRESSION: 1. Normal bilateral hips
== END | disposition home or self-care (01) ==
LOC: RADXRMAIN 08:34
PROVIDERS: ATTEND Family Medicine
DX: M16.0 Bilateral primary osteoarthritis of hip (principal); M48.07 Spinal stenosis, lumbosacral region; Z98.890 Other specified postprocedural states
CPT/HCPCS: 72110; 73521

== ENCOUNTER → 2023-03-10 | Outpatient (CLI) | payer MEDICARE ==
[2023-03-10 11:35] LABS: Blood Urea Nitrogen 43.4 mg/dL (9.0-27.0); Carbon Dioxide 29.1 mmol/L (21.6-31.8); Chloride 100 mmol/L (96-109); Glucose 121 mg/dL (70-110); Potassium 5.1 mmol/L (3.5-5.5); Sodium 141 mmol/L (135-145)
== END | disposition home or self-care (01) ==
LOC: LABWHC1 07:21
PROVIDERS: ATTEND Nurse Practitioner
DX: I10 Essential (primary) hypertension (principal)
CPT/HCPCS: 36415; 80048

== ENCOUNTER → 2023-04-04 | Outpatient (CLI) | payer MEDICARE ==
--- NOTE | 2023-04-07 14:36 | CT ---
EXAMINATION TYPE: CT chest wo con DATE OF EXAM: 04/04/2023 COMPARISON: 08/03/2016 HISTORY: Interstitial pulmonary disease, SOB [address] DLP: 2338 mGycm, Automated exposure control for dose reduction was used. CONTRAST: None TECHNIQUE: Axial images were obtained at 1 mm thick sections at 10 mm intervals. This will limit po rtions of the examination which may not be visualized within the [id number]. Images were obtained in the prone and supine views. FINDINGS: Portion of the thyroid visualized is normal. Couple small pleural-based densities are in the anterior right upper lung field. Series 6 image 48. T hese may be new. Some mild pleural thickening is along the anterior and lateral right upper lung field, example image series 6 image 63. Some subtle pleural thickening may be along the posterior lateral left lung base, series 6 image 165. The minimal pleural thickenings. Present previously There is a 1.2 cm nodule posterior right lung. Series 6 image 179. There is a 0.6 cm nodule posterior lateral right lung. Nodules were present previously, previous measurements 1.1 cm and 0.8 cm respect ively. Tiny calcification may be posterior left midlung. Series 10 image 167 No enlarged mediastinal or hilar adenopathy is evident. The ascending aorta diameter at the level o f the main pulmonary artery is 4.0 cm. The main pulmonary artery diameter at the bifurcation is 3.[address] sections are obtained through the upper abdomen. Abdomen is essentially unremarkable. IMPRESSION: 1. Stable right lower lung field nodules in minimal bilateral pleural thickenings.
== END | disposition home or self-care (01) ==
LOC: RADCTMAIN 09:07
PROVIDERS: ATTEND Internal Medicine Critical Care Medicine
DX: J94.8 Other specified pleural conditions (principal); J84.9 Interstitial pulmonary disease, unspecified; R91.8 Other nonspecific abnormal finding of lung field; R06.02 Shortness of breath
CPT/HCPCS: 71250

== ENCOUNTER → 2023-06-15 | Outpatient (CLI) | payer MEDICARE ==
[2023-06-15 15:36] LABS: Calcium 10.4 mg/dL (8.7-10.3); Carbon Dioxide 25.8 mmol/L (21.6-31.8); Chloride 104 mmol/L (96-109); Glucose 114 mg/dL (70-110); Potassium 5.3 mmol/L (3.5-5.5); Sodium 141 mmol/L (135-145)
== END | disposition home or self-care (01) ==
LOC: LABWHC1 09:26
PROVIDERS: ATTEND Internal Medicine Interventional Cardiology
DX: I10 Essential (primary) hypertension (principal)
CPT/HCPCS: 36415; 80048

== ENCOUNTER 2023-06-30 07:51 | Emergency (ER) | payer MEDICARE ==
[2023-06-30 08:18] VITALS: TEMP 97.8
--- NOTE | 2023-06-30 08:54 | ED ---
General Adult HPI - General Chief complaint: Shortness of Breath Stated complaint: Leg Swelling/SOB Time Seen by Provider: 06/30/23 07:55 Source: patient Mode of arrival: ambulatory Limitations: no limitations - History of Present Illness Initial comments: Dictation was produced using [employer] dictation software. please excuse any grammatical, word or spelling errors. Chief Complaint: 77-year-old male with past medical history of A-fib, COPD diabetes presents to the ER for lower extremity swelling shortness of breath History of Present Illness: Patient 77-year-old male he is has history of A-fib, asbestosis, diabetes and A-fib. States that over the last several days he has had swelling in his legs. Patient had seen his data collection associate and vegetable washing machine operator and primary care doctor regarding this. Apparently there is no obvious answer why his legs always swell. He has undergone treatments with Lasix. Patient also has complaint of shortness of breath. States that shortness of breath appears to be typical of his usual dyspnea. Denies any fever chills or night sweats. No cough. No runny nose or sore throat. Patient has no chest pain The ROS documented in this emergency department record has been reviewed and confirmed by me. Those systems with pertinent positive or negative responses have been documented in the HPI. All other systems are other negative and/or noncontributory. - Related Data Home Medications Medication Instructions Recorded Confirmed Atorvastatin [Lipitor] 10 mg PO HS 11/01/13 06/30/23 metFORMIN HCL 1,000 mg PO BID-W/MEALS 11/01/13 06/30/23 Losartan Potassium 100 mg PO HS 10/06/17 06/30/23 Apixaban [Eliquis] 5 mg PO BID 08/06/19 06/30/23 Albuterol Sulfate [Ventolin HFA] 1 - 2 puff INHALATION RT-Q6H PRN 03/05/20 06/30/23 Fluticasone/Umeclidin/Vilanter 1 puff INHALATION RT-DAILY 06/30/23 06/30/23 [Trelegy Ellipta 200-62.5-25] Furosemide [Lasix] 80 mg PO DAILY 06/30/23 06/30/23 Metoprolol Tartrate [Lopressor] 50 mg PO BID 06/30/23 06/30/23 Potassium Chloride [Klor-Con M20] 20 meq PO DAILY 06/30/23 06/30/23 Tamsulosin HCl [Flomax] 0.4 mg PO DAILY 06/30/23 06/30/23 Allergies Allergy/AdvReac Type Severity Reaction Status Date / Time niacin Allergy "LIGHTHEADE Verified 06/30/23 09:55 [From Niaspan D" Extended-Release] testosterone [From Axiron] Allergy ELEVATED Verified 06/30/23 09:55 B/P amoxicillin AdvReac Diarrhea Verified 06/30/23 09:55 Review of Systems ROS Statement: Those systems with pertinent positive or pertinent negative responses have been documented in the HPI. ROS Other: All systems not noted in ROS Statement are negative. 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 left eye, eyelid surg, spinal fusion L1-5, Past Anesthesia/Blood Transfusion Reactions: No Reported Reaction Past Psychological History: No Psychological Hx Reported Smoking Status: Former smoker Past Alcohol Use History: None Reported Past Drug Use History: None Reported General Exam - General Exam Comments Initial Comments: PHYSICAL EXAM: General Impression: Alert and oriented x3, not in acute distress HEENT: Normocephalic atraumatic, extra-ocular movements intact, pupils equal and reactive to light bilaterally, mucous membranes moist. Cardiovascular: Heart regular rate and rhythm Chest: Able to complete full sentences, no retractions, no tachypnea, lungs clear to auscultation bilaterally Abdomen: abdomen soft, non-tender, non-distended, no organomegaly Musculoskeletal: Pulses present and equal in all extremities, 3+ pitting edema to lower extremities Motor: no focal deficits noted Neurological: CN II-XII grossly intact, no focal motor or sensory deficits noted Skin: Intact with no visualized rashes Psych: Normal affect and mood Limitations: no limitations Course Vital Signs 06/30/23 06/30/23 06/30/23 07:52 08:53 09:31 Temperature 97.8 F Pulse Rate 68 66 65 Respiratory 24 20 18 Rate Blood Pressure 134/78 115/69 O2 Sat by Pulse 96 96 96 Oximetry 06/30/23 06/30/23 10:10 10:15 Temperature Pulse Rate Respiratory Rate Blood Pressure O2 Sat by Pulse 89 L 98 Oximetry EKG Findings - EKG Comments: EKG Findings:: My EKG interpretation: Ventricular rate 65, sinus rhythm,. 146, QRS 134, QTc 377. No MA prolongation, no QTC prolongation, no ST or T-wave changes noted. No EKG for comparison Medical Decision Making - Medical Decision Making Was pt. sent in by a medical professional or institution (, PA, FILAMENT TESTER, urgent care, hospital, or usp...) When possible be specific @ -No Did you speak to anyone other than the patient for history (EMS, parent, family, police, friend...)? What history was obtained from this source @ -No Did you review nursing and triage notes (agree or disagree)? Why? @ -I reviewed and agree with nursing and triage notes Were old charts reviewed (outside hosp., previous admission, EMS record, old EKG, old radiological studies, urgent care reports/EKG's, usp records)? Report findings @ -No old charts were reviewed Differential Diagnosis (chest pain, altered mental status, abdominal pain women, abdominal pain men, vaginal bleeding, musculoskeletal, weakness, fever, dyspnea, syncope, headache, dizziness, GI bleed, back pain, seizure, CVA, palpatations, mental health)? @ -Differential Dyspnea: Coronary syndrome, arrhythmia, tamponade, asthma, COPD, pulmonary embolism, pneu monia, pneumothorax, pulmonary effusion, anaphylaxis, diabetic ketoacidosis, flailed chest, pulmonary contusion, diaphragmatic rupture, anemia, neuromuscular, this is not meant to be an all-inclusive list. EKG interpreted by me (3pts min.). @ -See above X-rays interpreted by me (1pt min.). @ -Chest x-ray is nonacute CT interpreted by me (1pt min.). @ -None done U/S interpreted by me (1pt. min.). @ -None done What testing was considered but not performed or refused? (CT, X-rays, U/S, labs)? Why? @ -None What meds were considered but not given or refused? Why? @ -None Did you discuss the management of the patient with other professionals (professionals i.e. , PA, FILAMENT TESTER, lab, RT, psych nurse, director social, divorce attorney, teacher, small business banking officer, showcase maker)? Give summary @ -No Was smoking cessation discussed for >3mins.? @ -No Was critical care preformed (if so, how long)? @ -No Were there social determinants of health that impacted care today? How? (Homelessness, low income, unemployed, alcoholism, drug addiction, transportation, low edu. Level, literacy, decrease access to med. care, correction, rehab)? @ -No Was there de-escalation of care discussed even if they declined (Discuss DNR or withdrawal of care, Hospice)? DNR status @ -No What co-morbidities impacted this encounter? (DM, HTN, Smoking, COPD, CAD, Cancer, CVA, ARF, Chemo, Hep., AIDS, mental health diagnosis, sleep apnea, morbid obesity)? @ -None Was patient admitted / discharged? Hospital course, mention meds given and route, prescriptions, significant lab abnormalities, going to OR and other pertinent info. @ -77-year-old male presents to the emergency department for leg swelling. He does complain of shortness of breath. Patient has chronic shortness of breath secondary to asbestosis. Vital signs upon arrival are within acceptable limits. Patient has home oxygen that he uses at night. Patient denies any history of cardiomyopathy. He seen a data collection associate and had had workup for that in the past. Laboratory evaluation obtained. Labs are unremarkable. BNP is 340. Patient has ambulatory pulse ox that goes down to 89%. Patient states that it is normal for him to be the short of breath and has been ongoing for months if not years secondary to his asbestosis. Disposition options were discussed. Patient was offered observation admission for dyspnea he would prefer to be discharged to follow-up with his outpatient doctors. Risk and benefits were discussed regarding Lasix treatment. Patient told to elevate his legs. Suspect that his leg swelling is from dependent edema. Undiagnosed new problem with uncertain prognosis? @ -No Drug Therapy requiring intensive monitoring for toxicity (Heparin, Nitro, Insulin, Cardizem)? @ -No Were any procedures done? @ -No Diagnosis/symptom? Acute, or Chronic, or Acute on Chronic? Uncomplicated (without systemic symptoms) or Complicated (systemic symptoms)? @ -Leg edema Side effects of treatment? @ -No Exacerbation, Progression, or Severe Exacerbation? @ -No Poses a threat to life or bodily function? How? (Chest pain, [place], [place], pneumonia, PE, COPD, DKA, ARF, appy, cholecystitis, CVA, Diverticulitis, Homicidal, Suicidal, threat to staff... and all critical care pts) @ -No - Lab Data Result diagrams: 06/30/23 08:52 06/30/23 08:52 Lab Results 06/30/23 06/30/23 06/30/23 Range/Units 08:52 08:52 08:52 WBC 6.9 (3.8-10.6) k/uL RBC 3.99 L (4.30-5.90) m/uL Hgb 11.9 L (13.0-17.5) gm/dL Hct 37.1 L (39.0-53.0) % MCV 93.0 (80.0-100.0) fL MCH 29.8 (25.0-35.0) pg MCHC 32.0 (31.0-37.0) g/dL RDW 14.8 (11.5-15.5) % Plt Count 284 (150-450) k/uL MPV 8.5 Neutrophils % 72 % Lymphocytes % 16 % Monocytes % 9 % Eosinophils % 1 % Basophils % 0 % Neutrophils # 4.9 (1.3-7.7) k/uL Lymphocytes # 1.1 (1.0-4.8) k/uL Monocytes # 0.6 (0-1.0) k/uL Eosinophils # 0.1 (0-0.7) k/uL Basophils # 0.0 (0-0.2) k/uL PT 11.4 (10.0-12.5) sec INR 1.0 (<1.2) APTT 26.0 (22.0-30.0) sec Sodium 138 (137-145) mmol/L Potassium 4.9 (3.5-5.1) mmol/L Chloride 107 (98-107) mmol/L Carbon Dioxide 23 (22-30) mmol/L Anion Gap 8 mmol/L BUN 27 H (9-20) mg/dL Creatinine 0.80 (0.66-1.25) mg/dL Est GFR (CKD-EPI)AfAm >90 (>60 ml/min/1.73 sqM) Est GFR (CKD-EPI)NonAf 85 (>60 ml/min/1.73 sqM) Glucose 103 H (74-99) mg/dL Calcium 9.2 (8.4-10.2) mg/dL Troponin I (0.000-0.034) ng/mL NT-Pro-B Natriuret Pep 340 pg/mL 06/30/23 Range/Units 08:52 WBC (3.8-10.6) k/uL RBC (4.30-5.90) m/uL Hgb (13.0-17.5) gm/dL Hct (39.0-53.0) % MCV (80.0-100.0) fL MCH (25.0-35.0) pg MCHC (31.0-37.0) g/dL RDW (11.5-15.5) % Plt Count (150-450) k/uL MPV Neutrophils % % Lymphocytes % % Monocytes % % Eosinophils % % Basophils % % Neutrophils # (1.3-7.7) k/uL Lymphocytes # (1.0-4.8) k/uL Monocytes # (0-1.0) k/uL Eosinophils # (0-0.7) k/uL Basophils # (0-0.2) k/uL PT (10.0-12.5) sec INR (<1.2) APTT (22.0-30.0) sec Sodium (137-145) mmol/L Potassium (3.5-5.1) mmol/L Chloride (98-107) mmol/L Carbon Dioxide (22-30) mmol/L Anion Gap mmol/L BUN (9-20) mg/dL Creatinine (0.66-1.25) mg/dL Est GFR (CKD-EPI)AfAm (>60 ml/min/1.73 sqM) Est GFR (CKD-EPI)NonAf (>60 ml/min/1.73 sqM) Glucose (74-99) mg/dL Calcium (8.4-10.2) mg/dL Troponin I <0.012 (0.000-0.034) ng/mL NT-Pro-B Natriuret Pep pg/mL Disposition Clinical Impression: Leg edema Disposition: HOME SELF-CARE Condition: Fair Instructions (If sedation given, give patient instructions): Leg Edema (ED) Is patient prescribed a controlled substance at d/c from ED?: No Referrals: Kyle Conti DO [Primary Care Provider] - 1-2 days Time of Disposition: 10:20
[2023-06-30 09:07] LABS: Basophils % (A) 0 %; Eosinophils # (A) 0.1 k/uL (0-0.7); Eosinophils % (A) 1 %; HCT 37.1 % (39.0-53.0); HGB 11.9 gm/dL (13.0-17.5); Lymphocytes # (A) 1.1 k/uL (1.0-4.8); Lymphocytes % (A) 16 %; MCH 29.8 pg (25.0-35.0); Mean Platelet Volume 8.5; Monocytes # (A) 0.6 k/uL (0-1.0); Monocytes % (A) 9 %; Neutrophils # (A) 4.9 k/uL (1.3-7.7); Neutrophils % (A) 72 %; Platelet Count 284 k/uL (150-450); RBC 3.99 m/uL (4.30-5.90); RDW 14.8 % (11.5-15.5); WBC 6.9 k/uL (3.8-10.6)
--- NOTE | 2023-06-30 09:22 | XR ---
EXAMINATION TYPE: XR chest 2V DATE OF EXAM: 06/30/2023 COMPARISON: 11/30/2022 HISTORY: 77 year-old male shortness of breath, dyspnea, bilateral lower extremity swelling TECHNIQUE: AP and lateral views FINDINGS: Heart borderline enlarged. Hazy lower lung densities likely relate to overlying soft tissue. [facility] low er thoracic spine. Partially visualized posterior lumbar fusion hardware. IMPRESSION: Borderline cardiomegaly. Limited, underpenetrated lung bases. Otherwise, no definite acute change.
[2023-06-30 09:46] LABS: African American GFR (CKD) >90 (>60 ml/min/1.73 sqM); Anion Gap 8 mmol/L; Blood Urea Nitrogen 27 mg/dL (9-20); Calcium 9.2 mg/dL (8.4-10.2); Carbon Dioxide 23 mmol/L (22-30); Chloride 107 mmol/L (98-107); Glucose 103 mg/dL (74-99); Non-African American GFR(CKD) 85 (>60 ml/min/1.73 sqM); Potassium 4.9 mmol/L (3.5-5.1); Sodium 138 mmol/L (137-145)
[2023-06-30 09:49] LABS: Prothrombin Time 11.4 sec (10.0-12.5)
[2023-06-30 09:55] LABS: NT-Pro-B-Type Natriuretic Pept 340 pg/mL
[2023-06-30 11:26] VITALS: BP 117/53; PULSE 61; RESP 18
== END 2023-06-30 11:32 | disposition home or self-care (01) ==
LOC: EC 07:51
DX: R60.0 Localized edema (principal); Z88.0 Allergy status to penicillin; Z88.8 Allergy status to other drugs, medicaments and biological substances; Z87.891 Personal history of nicotine dependence
CPT/HCPCS: 36415; 71046; 80048; 83880; 84484; 85025; 85610; 85730; 93005; 99285

== ENCOUNTER → 2023-11-17 | Outpatient (CLI) | payer MEDICARE ==
[2023-11-17 08:16] LABS: Partial Thromboplastin Time 25.6 sec (22.0-30.0)
[2023-11-17 11:15] LABS: HCT 38.8 % (39.6-50.0); HGB 12.3 g/dL (13.0-17.0); MCH 28.7 pg (27.0-32.0); MCHC 31.7 g/dL (32.0-37.0); MCV 90.7 FL (80.0-97.0); Mean Platelet Volume 9.9 FL (9.5-12.2); NRBC Per 100 WBC 0 X 10*3/uL (0.00-0.01); Platelet Count 307 X 10*3/uL (140-440); RBC 4.28 X 10*6/uL (4.40-5.60); RDW 14.8 % (11.5-14.5); WBC 9.25 X 10*3/uL (4.50-10.00)
[2023-11-17 11:21] LABS: ALT 22 U/L (10-49); AST 18 U/L (14-35); Albumin 3.9 g/dL (3.8-4.9); Alkaline Phosphatase 85 U/L (41-126); BUN/Creat Ratio 23.75 Ratio (12.00-20.00); Calcium 9.5 mg/dL (8.7-10.3); Chloride 106 mmol/L (96-109); Globulin 2.3 g/dL (1.6-3.3); Glucose 138 mg/dL (70-110); Potassium 5.2 mmol/L (3.5-5.5); Sodium 141 mmol/L (135-145); Total Bilirubin 0.2 mg/dL (0.3-1.2); Total Protein 6.2 g/dL (6.2-8.2)
== END | disposition home or self-care (01) ==
LOC: LABPAT 06:58
PROVIDERS: ATTEND Orthopaedic Surgery
DX: Z01.812 Encounter for preprocedural laboratory examination (principal); Z22.322 Carrier or suspected carrier of Methicillin resistant Staphylococcus aureus; M17.12 Unilateral primary osteoarthritis, left knee
CPT/HCPCS: 80053; 85027; 85610; 85730; 87070; 87077; 87186

== ENCOUNTER 2023-12-13 10:30 | Day surgery (SDC) | payer MEDICARE ==
[~2023-12-13 10:30] MED LIST changes: +HYDROcodone/APAP 7.5-325MG 1 EACH TAB PO PRN; +HYDROmorphone 0.5 MG/0.5 ML SYRINGE IVP PRN; +LIDOCAINE 1% (10MG/ML) FOR IV START INTRADERMA PRN; +MAGNESIUM HYDROXIDE 2,400 MG/30 ML CUP PO PRN; +NA PHOS,M-B/NA PHOS,DI-BA 133 ML ENEMA RECTAL PRN; +NALOXONE 0.4 MG/ML 1 ML VIAL IV PRN; -ONDANSETRON 4 MG/2 ML VIAL IVP ONE; +ONDANSETRON 4 MG/2 ML VIAL IVP PRN; -SODIUM CHLORIDE 0.9% IRRIGATIO 1,000 ML IRRIGATION ONE; +TRANEXAMIC 1,000 MG/100ML-NACL 1,000 MG in SALINE 1 100ML.BAG IVPB PRN; +bisacodyL 10 MG SUPP RECTAL PRN; +fentaNYL (PF) 50 MCG/ML 2 ML AMP IVP PRN
[2023-12-13] MEDS: IV FLUID CONTINUATION 1,000 ML IV ONE (11:08)
[2023-12-13] MEDS: ACETAMINOPHEN TAB 500 MG TAB PO PRN (11:10)
[2023-12-13] MEDS: MELOXICAM 7.5 MG TAB PO PRN (11:10)
[2023-12-13] MEDS: GABAPENTIN 300 MG CAP PO PRN (11:10)
[2023-12-13] MEDS: MIDAZOLAM 2 MG/2 ML VIAL IV PRN (11:16)
[2023-12-13 11:28] LABS: Glucose,Whole Blood 115 mg/dL (70-110)
--- NOTE | 2023-12-13 11:43 | P.ANPRN ---
Procedure Note - Anesthesia - Nerve Block Performed Left Autumn Single Date of Procedure: 12/13/23 Procedure Start Time: 11:15 Procedure Stop Time: 11:19 Location of Patient: PreOp Indication: Acute Post-Operative Pain, Analgesia, Requested by Surgeon Sedation Type: Sedate with meaningful contact maintained Preparation: Sterile Prep Position: Right Lateral Catheter: None Needle Types: Pajunk Needle Gauge: 21 Ultrasound used to visualize needle placement: Yes Ultrasound used to observe medication spread: Yes Injectate: 0.5% Ropivacaine (see comment for volume) ([id number]) Blood Aspirated: No Pain Paresthesia on Injection Noted: No Resistance on Injection: Normal Image Stored and Saved: Yes Events: Uneventful and Well Tolerated
--- NOTE | 2023-12-13 11:44 | P.ANPRN ---
Procedure Note - Anesthesia - Nerve Block Performed Left Adductor Canal Infusion Time Out Performed: Yes Date of Procedure: 12/13/23 Procedure Start Time: Procedure Stop Time: Location of Patient: PreOp Indication: Acute Post-Operative Pain, Analgesia, Requested by Surgeon Preparation: Sterile Prep Position: Supine Catheter: Indwelling Needle Types: On-Q Ultrasound used to visualize needle placement: Yes Ultrasound used to observe medication spread: Yes Injectate: 0.5% Ropivacaine (see comment for volume) (Ropiv [id number]) Blood Aspirated: No Pain Paresthesia on Injection Noted: No Resistance on Injection: Normal Image Stored and Saved: Yes Events: Uneventful and Well Tolerated
[2023-12-13] MEDS: ONDANSETRON 4 MG/2 ML VIAL IVP ONE (11:55)
[2023-12-13] MEDS: DEXAMETHASONE SOD PHOSPHATE 4 MG/ML 1 ML VIAL IV ONE (11:55)
[2023-12-13] MEDS ORDERED: DEXAMETHASONE SOD PHOSPHATE 4 MG/ML 1 ML VIAL ONE (12:21)
[2023-12-13] MEDS ORDERED: MIDAZOLAM 2 MG/2 ML VIAL ONE (12:21)
[2023-12-13] MEDS ORDERED: LIDOCAINE 1% INJ 10MG/ML (20 ML MDV) ONE (12:21)
[2023-12-13] MEDS ORDERED: ROPIVACAINE 5 MG/ML 30 ML VIAL ONE (12:21)
[2023-12-13] MEDS ORDERED: ROCURONIUM 10 MG/ML (5 ML VIAL) IV ONE (12:21)
[2023-12-13] MEDS ORDERED: TRANEXAMIC 1,000 MG/100ML-NACL PREMIX BAG ONE (12:21)
[2023-12-13] MEDS ORDERED: GLYCOPYRROLATE 0.2 MG/ML 2 ML VIAL ONE (12:21)
[2023-12-13] MEDS ORDERED: NEOSTIGMINE 1 MG/ML 10 ML VIAL ONE (12:21)
[2023-12-13] MEDS ORDERED: fentaNYL (PF) 50 MCG/ML 2 ML AMP ONE (12:21)
[2023-12-13] MEDS ORDERED: SUCCINYLCHOLINE CHLORIDE 200 MG/10 ML VIAL IV ONE (12:21)
[2023-12-13] MEDS ORDERED: PHENYLEPHRINE-0.9% NACL SYG 1,000 MCG/10 ML SYRINGE ONE (12:21)
[2023-12-13] MEDS ORDERED: PROPOFOL 10 MG/ML 20 ML VIAL IV ONE (12:21)
[2023-12-13] MEDS: ceFAZolin 1,000 MG in SODIUM CHLORIDE 0.9% 1,000 ML IRRIGATION ONE (12:26)
--- NOTE | 2023-12-13 13:35 | P.OP ---
Date of Procedure: 12/13/23 Preoperative Diagnosis: Severe osteoarthritis left knee Postoperative Diagnosis: Severe osteoarthritis left knee Procedure(s) Performed: Left total knee arthroplasty Implants: [employer] Journey II CR Oxinium cruciate retaining femoral component size 7, left [employer] Journey nonporous tibial baseplate size 5, left [employer] Journey II, XLPE Deep Dished articular insert, size 10 mm, Size 5-6, left [employer] Journey Landy II resurfacing patellar component, oval, 35 mm All components were cemented using Palacos R bone cement The articulation is Oxinium on polyethylene Anesthesia: IRVING Surgeon: Sudarshan Melton Button Riveter #1: Sara Ragland Estimated Blood Loss (ml): 30 Pathology: none sent Condition: stable Disposition: PACU Indications for Procedure: The patient's knee is end-stage, and conservative management has failed. The operation of knee replacement has been discussed at length in the office, as well as potential risks and complications. These are inclusive of, but not limited to: Infection, bleeding, scarring, discomfort, stiffness, blood vessel and nerve damage, need for further surgery, failure to relieve symptoms, persistence, recurrence, or worsening of problems, loosening, dislocation, wear, blood clot, pulmonary embolism, , gait dysfunction, stiffness, and other risks as discussed in the office. Patient elects to proceed and the consent form has been signed. Operative Findings: The operative findings are consistent with severe osteoarthritis of the left knee Description of Procedure: The patient was seen in the preoperative area, the consent was reviewed and the operative site was marked with a skin marker. The patient verified the procedure and the operative site. An adductor canal pain catheter and an iPACK block were placed by anesthesia in the preoperative area. The patient was then brought to the operating room and positioned on the operating room table in the supine position. Preoperative antibiotics and a gram of tranexamic acid were given intravenously. A general anesthetic was administered by the anesthesia department. Care was taken to make sure that all pressure points were adequately padded. A tourniquet was placed on the upper thigh and the lower extremity was prepped with ChloraPrep and draped in usual sterile fashion. A universal time-out was then performed which confirmed the patient's name, surgical site, ALLERGIES, and consent. The lower extremity was then exsanguinated and tourniquet was inflated to 250 mmHg. A standard anterior midline approach to the knee was performed. The skin and subcutaneous tissue were sharply dissected down to the patellar tendon. A medial parapatellar arthrotomy was then performed. The knee was then extended, the patellar was everted, and the knee was flexed. The infra-patellar fat pad was removed in order to enhance exposure. The anterior horns of both menisci were excised, and a release was performed to the posterior medial aspect of the knee. On gross visual inspection, there was complete loss of articular cartilage in the medial and patellofemoral joint spaces. There was also significant cartilage damage in the lateral compartment. There were multiple periarticular osteophytes globally about the knee which were then removed with a Ronguer. The femoral canal was then opened with the 9.5 mm intramedullary drill. The 8 mm intramedullary shira was then inserted into the femoral canal with the distal femoral cutting guide set for 5 of valgus. The distal femoral cutting block was then pinned in place. The intramedullary shira was then removed, and the distal femur was then cut. The cutting block was then removed and the cut was checked for symmetry. The resected bone was then measured to confirm the appropriate distal femoral resection. Next, the sizing guide was then placed and set for 3 external rotation based off of the epicondylar axis and Charleston's line. Pins were then placed and the drill holes, and the femur was sized with the sizing stylus. The pins were then removed, and the sizing guide was then removed. The spikes of the appropriate size femoral block was then placed into the predrilled holes, and malleted into place. Two 45 mm pins were then placed into the fixation holes on the cutting block. An vivek wing was then used to ensure there would be no notching with the anterior cut. The anterior condyles were cut without notching. The anterior chord cut was then performed, followed by the posterior cut, posterior chamfer cut, and the anterior chamfer cut. The collateral ligaments were protected during the entire process. The cutting block was then removed. Any remaining bone and osteophytes were removed from the femur with a Ronguer. Attention was then directed to the tibia. The remaining ACL was removed with a Ronguer, and the tibia was then gently subluxed forward with a large bent knee retractor. Any remaining menisci were excised. The posterior lateral corner was cauterized in order to coagulate the lateral geniculate artery. The extra medullary tibial cutting guide was then placed, set for the appropriate rotation, slope, and depth of resection. The proximal tibia cutting guide was then pinned in place. Proximal tibia was then cut and sized. A curved osteotome was then used to remove any posterior osteophytes from the distal femur. The femoral trial was placed. A narrow saw blade was then used to remove the anterior intracondylar femoral bone. The CR notch trial was then placed. The tibial trial was placed with the appropriate-sized insert. The knee was able to fully extend and flex to 130 and was stable throughout all range of motion. The knee was then extended and the patella was everted. Patella was then measured, and then using an osteotomy guide, the patella was cut at the appropriate level. The patellar component was sized. The patellar drill guide was placed and the patella was drilled. The patella trial was then placed. The knee was then taken through range of motion with the patella trial and the patella tracked normally using the no thumbs technique. The patella trial was then removed. The knee was then flexed and lug holes were drilled through the femoral trial and the femoral trial was then removed. The tibial was then re- exposed, and the tibial broach guide was then pinned in place after it was set for the appropriate rotation to allow for the most coverage without overhang. The tibia was then reamed and broached. The femoral canal was plugged with autologous bone. The cut surfaces of bone were then irrigated with pulsatile lavage. The knee was also irrigated with Irrisept solution. The components were then opened, the cement was mixed. Cement was placed on the backside of the femoral, tibial, and patellar components. Cement was then applied to the tibial surface and pressurized into the surface using finger pressurization technique. The tibial component was then applied and excess cement was removed after it was impacted securely noted to be flush with the cut surface. In similar fashion, the cement was applied to the cut femoral surface, pressuri zed and using finger pressurization the component was impacted in place. Excess cement was removed. The polyethylene spacer was then implanted and locked into position. Patellar component was then applied in a similar technique and the patellar clamp was used to hold patella in place while the cement hardened. The knee was held in full extension while the cement hardened. Once the cement had fully hardened, the knee was reinspected. Any other cement extrusion was removed the final range of motion testing showed range of motion from 0-130 with excellent stability, both medial and laterally and appropriate alignment of the leg. Patella tracked normally. After the cemented hardened, the tourniquet was released and hemostasis was obtained. A second gram of transexamic acid was given intravenously. The knee was again irrigated. The knee was again taken through range of motion and found to be stable throughout all range of motion of 0-130, and the patella tracked normally. The fascia was then closed with 0 Vicryl followed by #2 strata fix suture. The subcutaneous tissue was closed with 3-0 Vicryl and 3-0 strata fix. Exofin glue was used for the skin and placed with the knee in flexion. After the glue had dried, and Optafoam silver impregnated dressing was applied. A lightly compressive dressing was applied using web roll and Nikita wrap. Patient was then transferred to the stretcher and taken to recovery room in stable condition. Sponge and needle counts were correct. The hardware sales assistant FRANKLYN Ponce was required due the complexity surgery and the need for a skilled surgical asst. She assisted in positioning, draping, retraction, and closure of the wound.
[2023-12-13] MEDS: ROPIVACAINE 1,100 MG, SODIUM CHLORIDE 0.9% 500 ML 330 ML, EMPTY PAIN BALL 1 EACH MISCELLANE PRN (14:16)
[2023-12-13] MEDS: HYDROmorphone 0.5 MG/0.5 ML SYRINGE IVP PRN (14:21)
[2023-12-13] MEDS: LACTATED RINGERS 1,000 ML IV ONE (15:14)
[2023-12-13] MEDS: LACTATED RINGERS 1,000 ML IV SCH (16:31)
--- NOTE | 2023-12-13 16:36 | XR ---
EXAMINATION TYPE: XR knee limited LT DATE OF EXAM: 12/13/2023 3:06 PM CLINICAL INDICATION: Male, 78 years old with history of Evaluation for Postop abnormality and alignme nt; [facility] COMPARISON: None. TECHNIQUE: XR knee limited LT; examined in Frontal, lateral and oblique projections. FINDINGS: Status post total knee arthroplasty changes with hardware in appropriate alignment and in tact. No evidence of fracture. Subcutaneous lucencies and lucencies within the joint consistent with surgical changes. IMPRESSION: Status post total knee arthroplasty changes with hardware intact and appropriate alignment. No fractu res identified. [facility], , 12/13/2023 4:34 PM
[2023-12-13] MEDS: SODIUM CHLORIDE 0.9% 1,000 ML IV SCH (17:05)
[2023-12-13 20:23] LABS: Glucose,Whole Blood 188 mg/dL (70-110)
[2023-12-13] MEDS: SENNOSIDES-DOCUSATE SODIUM 1 EACH TAB PO SCH (22:36)
[2023-12-14 06:13] LABS: Glucose,Whole Blood 199 mg/dL (70-110)
[2023-12-14 07:12] VITALS: BP 103/56; PULSE 71; RESP 18; TEMP 97.7
--- NOTE | 2023-12-14 08:32 | P.PN ---
Progress Note - Text Progress Note Date: 12/14/23 Postoperative day # 1 status post total knee arthroplasty, and adductor canal catheter placed for postoperative analgesia, currently at ropivacaine 0.2% 8 mL per hour and continuous infusion, visual analogue scale is 3/10, patient using oral pain medication for breakthrough pain. Assessment and plan= Acute postoperative pain, adductor canal catheter for pain control, pain is well controlled we'll continue the same management.
[2023-12-14 08:49] LABS: Basophils # (A) 0.01 X 10*3/uL (0.00-0.10); Basophils % (A) 0.1 %; Eosinophils # (A) 0 X 10*3/uL (0.04-0.35); Eosinophils % (A) 0 %; HGB 11.2 g/dL (13.0-17.0); Lymphocytes # (A) 0.65 X 10*3/uL (0.90-5.00); Lymphocytes % (A) 4.6 %; MCH 28.1 pg (27.0-32.0); MCHC 31.1 g/dL (32.0-37.0); MCV 90.5 FL (80.0-97.0); Mean Platelet Volume 10.3 FL (9.5-12.2); Monocytes # (A) 0.47 X 10*3/uL (0.20-1.00); Monocytes % (A) 3.3 %; NRBC Per 100 WBC 0 X 10*3/uL (0.00-0.01); Neutrophils # (A) 12.99 X 10*3/uL (1.80-7.70); Neutrophils % (A) 91.4 %; Platelet Count 283 X 10*3/uL (140-440); RBC 3.98 X 10*6/uL (4.40-5.60); RDW 14.6 % (11.5-14.5); WBC 14.21 X 10*3/uL (4.50-10.00)
[2023-12-14] MEDS: HYDROcodone/APAP 7.5-325MG 1 EACH TAB PO PRN (08:51)
[2023-12-14] MEDS: APIXABAN 5 MG TAB PO SCH (08:51)
[2023-12-14] MEDS ORDERED: ALBUTEROL NEBULIZED 2.5 MG/3 ML INHALATION PRN (09:15)
--- NOTE | 2023-12-14 09:15 | P.CONS ---
History of Present Illness - Reason for Consult Consult date: 12/14/23 Medical management - Chief Complaint Left knee arthroplasty - History of Present Illness Patient is a 78-year-old male with a past medical history ofAtrial fibrillation on anticoagulation with Eliquis, hypertension, hyperlipidemia, diabetes type 2 [id number], history of non-Hodgkin's lymphoma status post chemo in 2009, obstructive sleep apnea on CPAP at night and prior history of smoking admitted to hospital for elective surgery. Patient is status post left total knee arthroplasty. Postoperative day 1. Patient currently denied any complaints of chest pain or shortness of breath. Pain is controlled. Currently on nerve block. Denied any complaints of chest pain or shortness of breath. No nausea vomiting abdominal pain or diarrhea. Participating in PT OT. Patient is able to use incentive spirometer. Laboratory data showed WBC 14.2 hemoglobin 11.2 and platelets 283 sodium 136 potassium 5.2 chloride 104 bicarb is 24 BUN 23 and creatinine 0.99 and blood sugar 178. Calcium 8.7. Blood pressure was down to 103/56 with pulse ox of 91 and respiratory rate 18. Currently on room air at 92%. Review of Systems Constitutional: Patient denies any fever or chills . No generalized weakness or weight loss. Abdomen: Patient denied nausea vomiting and diarrhea and abdominal pain. Cardiovascular: Patient denies any chest pain or short of breath no palpitations. Respiratory: patient denied any cough or sputum production. No shortness of breath Neurologic: Patient denied any numbness or tingling. no headache. Musculoskeletal: Patient denies any complaints of joint swelling or deformity. Skin: Negative Psychiatric: Negative Endocrine: No heat or cold intolerance. No recent weight gain. Genitourinary: No dysuria or hematuria. All other 14 point ROS negative except the above Past Medical History Past Medical History: Atrial Fibrillation, Cancer, COPD, Diabetes Mellitus, Hyperlipidemia, Hypertension, Sleep Apnea/CPAP/BIPAP Additional Past Medical History / Comment(s): HX NONHODGKINS LYMPHOMA 2010 WITH CHEMO. RASH ON RIGHT HAND X10 YRS. SLEEP APNEA WITH CPAP USE. O2 USE AT NIGHT ONLY. History of Any Multi-Drug Resistant Organisms: None Reported Past Surgical History: Back Surgery, Cholecystectomy, Hernia Repair, Joint Replacement, Orthopedic Surgery Additional Past Surgical History / Comment(s): BILATERAL CARPAL TUNNEL, LEFT THUMB BASAL JOINT, CYST ON NECK REMOVED X2, PORT A CATHETER PLACED AND LATER REMOVED, SURGERY FOR SLEEP APNEA, RIGHT FOOT SURGERY, cataracts removed, membrane surgery left eye, eyelid surgery, spinal fusion L1-5, knuckle replacement right hand. Past Anesthesia/Blood Transfusion Reactions: No Reported Reaction Past Psychological History: No Psychological Hx Reported Smoking Status: Former smoker Past Alcohol Use History: None Reported Additional Past Alcohol Use History / Comment(s): Quit smoking in 1995, smoked for 38 yrs, up to 4 ppd. Past Drug Use History: None Reported - Past Family History Mother Family Medical History: No Reported History Medications and Allergies Home Medications Medication Instructions Recorded Confirmed Type RX: Atorvastatin [Lipitor] 10 mg PO HS 11/01/13 12/13/23 History RX: metFORMIN HCL [Glucophage] 1,000 mg PO BID 11/01/13 12/13/23 History RX: Losartan Potassium 100 mg PO HS 10/06/17 12/13/23 History RX: Apixaban [Eliquis] 5 mg PO BID 08/06/19 12/13/23 History RX: Albuterol Sulfate [Ventolin 1 - 2 puff INHALATION RT-Q6H PRN 03/05/20 12/13/23 History HFA] RX: Fluticasone/Umeclidin/Vilanter 1 puff INHALATION QAM 06/30/23 12/13/23 History [Trelegy Ellipta 200-62.5-25] RX: Furosemide [Lasix] 40 mg PO DAILY 06/30/23 12/13/23 History RX: Metoprolol Tartrate [Lopressor] 50 mg PO BID 06/30/23 12/13/23 History RX: Potassium Chloride [Klor-Con 20 meq PO QAM 06/30/23 12/13/23 History M20] RX: Tamsulosin HCl [Flomax] 0.4 mg PO QAM 06/30/23 12/13/23 History RX: Semaglutide [Ozempic] 0.25 mg SQ TH 12/05/23 12/05/23 History HYDROcodone/APAP 7.5-325MG [[place] 1 - 2 tab PO Q6H PRN #32 tab 12/13/23 Rx 7.5-325] Sennosides [Senokot] 2 tab PO DAILY PRN #60 tablet 12/13/23 Rx Allergies Allergy/AdvReac Type Severity Reaction Status Date / Time niacin Allergy "LIGHTHEADE Verified 12/13/23 10:53 [From Niaspan D" Extended-Release] testosterone [From Axiron] Allergy ELEVATED Verified 12/13/23 10:53 B/P amoxicillin AdvReac Diarrhea Verified 12/13/23 10:53 Physical Exam Vitals: Vital Signs Temp Pulse Pulse Pulse Resp BP Pulse Ox 12/14/23 07:12 97.7 F 71 18 103/56 92 L 12/14/23 02:23 97.4 F L 75 22 135/64 96 12/13/23 22:30 97.5 F L 64 16 139/68 99 12/13/23 17:40 109 H 118/62 93 L 12/13/23 17:25 102 H 130/94 95 12/13/23 17:10 109 H 124/65 95 12/13/23 16:55 118 H 142/63 96 12/13/23 16:40 121 H 138/80 95 12/13/23 16:25 97.9 F 103 H 17 128/80 93 L 12/13/23 16:01 101 H 16 117/60 99 12/13/23 15:31 98 16 120/54 99 12/13/23 15:16 50 L 16 119/50 99 12/13/23 15:00 54 L 16 114/50 99 12/13/23 14:45 66 16 105/53 99 12/13/23 14:30 62 16 117/52 95 12/13/23 14:16 65 16 131/66 95 12/13/23 14:00 97 F L 79 16 110/60 95 12/13/23 11:50 73 16 112/56 97 12/13/23 11:45 75 16 109/56 97 12/13/23 11:05 97.6 F 75 16 144/63 96 Intake and Output 12/13/23 12/14/23 12/14/23 22:59 06:59 14:59 Other: Voiding Method Toilet # Voids 5 Weight 120.7 kg PHYSICAL EXAMINATION: Patient is lying in the bed comfortably, no acute distress, awake alert and oriented.. HEENT: Normocephalic. Neck is supple. Pupils reactive. Nostrils clear. Oral cavity is moist. Neck reveals no JVD, carotid bruits, or thyromegaly. CHEST EXAMINATION: Trachea is central. Symmetrical expansion. Bibasilar diminished sounds. Lung panchal clear to auscultation and percussion. CARDIAC: Normal S1, S2 with no gallops. No murmurs ABDOMEN: Soft. Bowel sounds normal. No organomegaly. No abdominal bruits. Extremities: reveal no edema. No clubbing or cyanosis Neurologically awake, alert, oriented x3 with well-coordinated movements. No focal deficits noted Skin: No rash or skin lesions. Psychiatric: Coperative. Nonsuicidal Musculoskeletal: No joint swelling or deformity. Left knee surgical site i ntact. Results CBC & Chem 7: 12/14/23 03:13 12/14/23 03:13 Labs: Abnormal Lab Results - Last 24 Hours (Table) 12/13/23 12/13/23 12/14/23 Range/Units 11:08 20:18 03:13 WBC 14.21 H (4.50-10.00) X 10*3/uL RBC 3.98 L (4.40-5.60) X 10*6/uL Hgb 11.2 L (13.0-17.0) g/dL Hct 36.0 L (39.6-50.0) % MCHC 31.1 L (32.0-37.0) g/dL RDW 14.6 H (11.5-14.5) % Immature Gran # 0.09 H (0.00-0.04) X 10*3/uL Neutrophils # 12.99 H (1.80-7.70) X 10*3/uL Lymphocytes # 0.65 L (0.90-5.00) X 10*3/uL Eosinophils # 0 L (0.04-0.35) X 10*3/uL POC Glucose (mg/dL) 115 H 188 H (70-110) mg/dL 12/14/23 Range/Units 06:11 WBC (4.50-10.00) X 10*3/uL RBC (4.40-5.60) X 10*6/uL Hgb (13.0-17.0) g/dL Hct (39.6-50.0) % MCHC (32.0-37.0) g/dL RDW (11.5-14.5) % Immature Gran # (0.00-0.04) X 10*3/uL Neutrophils # (1.80-7.70) X 10*3/uL Lymphocytes # (0.90-5.00) X 10*3/uL Eosinophils # (0.04-0.35) X 10*3/uL POC Glucose (mg/dL) 199 H (70-110) mg/dL Assessment and Plan Assessment: Status post left total knee arthroplasty postoperative day 1 Hypertension. Blood pressure is controlled. Paroxysmal atrial fibrillation on anticoagulation with Eliquis which has been resumed. Diabetes type 2 nursing dependent Leukocytosis likely postsurgical inflammation Mild hyperkalemia likely due to potassium sore mentation. Patient is also on Lasix. Obstructive sleep apnea CPAP at night History of non-Hodgkin's lymphoma in 2010 status post chemotherapy COPD not in exacerbation Prior history of smoking DVT prophylaxis patient is already on full anticoagulation Plan: Patient will be continued on home medications. Encourage incentive spirometry and PT OT. Patient was recommended to follow-up with primary care physician to recheck BMP in the next 3 to 5 days. Continue with home medications and follow-up closely. Patient is being discharged home today. Thank you kindly for your consult. Time with Patient: Greater than 30
[2023-12-14] MEDS: METOPROLOL TARTRATE 50 MG TAB PO SCH (09:44)
[2023-12-14] MEDS: TAMSULOSIN 0.4 MG CAP.ER.24H PO SCH (09:44)
[2023-12-14 10:10] LABS: African American GFR (CKD) 83 (>60 ml/min/1.73 sqM); Anion Gap 8 mmol/L; Blood Urea Nitrogen 23 mg/dL (9-20); Calcium 8.7 mg/dL (8.4-10.2); Carbon Dioxide 24 mmol/L (22-30); Chloride 104 mmol/L (98-107); Glucose 178 mg/dL (74-99); Non-African American GFR(CKD) 72 (>60 ml/min/1.73 sqM); Potassium 5.2 mmol/L (3.5-5.1); Sodium 136 mmol/L (137-145)
[2023-12-14 11:30] LABS: Glucose,Whole Blood 392 mg/dL (70-110)
[2023-12-14] MEDS ORDERED: DEXTROSE 50% SYRINGE 50 ML IVP PRN ×2 (11:30)
[2023-12-14] MEDS: INSULIN ASPART (NovoLOG) 100 UNIT/ML VIAL SQ SCH (12:01)
--- NOTE | 2023-12-14 12:07 | P.DS ---
Providers Expected date of discharge: 12/14/23 Attending physician: Sudarshan Melton Consults: 12/13/23 08:47 Consult Physician Routine Consulting Provider: Idris Valenzuela Consult Reason/Comments: medical management Do you want consulting provider notified?: Yes Primary care physician: Kyle Conti - Discharge Diagnosis(es) (1) Osteoarthritis of left knee Current Visit: Yes Status: Acute (2) S/P total knee arthroplasty Current Visit: Yes Status: Acute Hospital Course: This is an 78-year-old male with known history of degenerative arthritis of the left knee. The patient presented for evaluation as an outpatient. After discussion and consideration patient elects to proceed with total knee arthroplasty. The patient is seen preoperatively by Dr. Melton and medically cleared for surgery by their primary care physician. Patient is admitted to [facility] on 12/13/2023 for total knee arthroplasty. The procedure is performed without complication or sequelae. The patient is doing well postoperatively. Labs and vital signs are stable on day of discharge. On day of discharge patient's knee incision is healing well. There is minimal erythema. There is no drainage noted at this time. There is minimal soft tissue swelling to the knee. Patient has full foot and ankle motion without difficulty or pain. Calf is soft and nontender to palpation. Neurovascular status to the left lower extremity is intact. Patient is discharged home in good condition. Please see med rec for accurate list of home medications. Plan - Discharge Summary Discharge Rx Participant: Yes New Discharge Prescriptions: New HYDROcodone/APAP 7.5-325MG [[place] 7.5-325] 1 - 2 tab PO Q6H PRN #32 tab PRN Reason: Pain Sennosides [Senokot] 2 tab PO DAILY PRN #60 tablet PRN Reason: Constipation Continue metFORMIN HCL [Glucophage] 1,000 mg PO BID Atorvastatin [Lipitor] 10 mg PO HS Losartan Potassium 100 mg PO HS Apixaban [Eliquis] 5 mg PO BID Albuterol Sulfate [Ventolin HFA] 1 - 2 puff INHALATION RT-Q6H PRN PRN Reason: Shortness Of Breath Potassium Chloride [Klor-Con M20] 20 meq PO QAM Fluticasone/Umeclidin/Vilanter [Trelegy Ellipta 200-62.5-25] 1 puff INHALATION QAM Furosemide [Lasix] 40 mg PO DAILY Tamsulosin HCl [Flomax] 0.4 mg PO QAM Metoprolol Tartrate [Lopressor] 50 mg PO BID Semaglutide [Ozempic] 0.25 mg SQ TH Discharge Medication List Atorvastatin [Lipitor] 10 mg PO HS 11/01/13 [History] metFORMIN HCL [Glucophage] 1,000 mg PO BID 11/01/13 [History] Losartan Potassium 100 mg PO HS 10/06/17 [History] Apixaban [Eliquis] 5 mg PO BID 08/06/19 [History] Albuterol Sulfate [Ventolin HFA] 1 - 2 puff INHALATION RT-Q6H PRN 03/05/20 [History] Fluticasone/Umeclidin/Vilanter [Trelegy Ellipta 200-62.5-25] 1 puff INHALATION QAM 06/30/23 [History] Furosemide [Lasix] 40 mg PO DAILY 06/30/23 [History] Metoprolol Tartrate [Lopressor] 50 mg PO BID 06/30/23 [History] Potassium Chloride [Klor-Con M20] 20 meq PO QAM 06/30/23 [History] Tamsulosin HCl [Flomax] 0.4 mg PO QAM 06/30/23 [History] Semaglutide [Ozempic] 0.25 mg SQ TH 12/05/23 [History] HYDROcodone/APAP 7.5-325MG [[place] 7.5-325] 1 - 2 tab PO Q6H PRN #32 tab 12/13/23 [Rx] Sennosides [Senokot] 2 tab PO DAILY PRN #60 tablet 12/13/23 [Rx] Follow up Appointment(s)/Referral(s): [facility] [NON-STAFF] - As Needed (Continuous Passive Motion knee machine) Kyle Conti DO [Primary Care Provider] - 3 Days Sudarshan Melton DO [Doctor of Osteopathic Medicine] - 2 Weeks (follow up appointment Dec 20 at 1:15 Surgical follow up Dec 25 2:30) Activity/Diet/Wound Care/Special Instructions: [facility] home care: #[phone] Weightbearing as tolerated with a walker. CPM 5-6h daily as tolerated. Leave dressing intact. Dressing may be removed by home care nurse or by patient in 7 days. Then change dressing twice daily until follow up. May shower with initial dressing intact and after removal. If dressing become saturated, please remove. Recommend use of compression stockings daily until follow up to help prevent swelling and blood clots. May remove at night before sleeping. Please resume Eliquis. Please follow up with [facility] and call with any questions or concerns, . Discharge Disposition: HOME WITH HOME HEALTH SERVICES
[2023-12-14] MEDS: IPRATROPIUM 0.5 MG/2.5 ML NEBU INHALATION SCH (12:49)
[2023-12-14] MEDS ORDERED: SYMBICORT 80-4.5 MCG INHALER INHALATION SCH (20:00)
[2023-12-14] MEDS ORDERED: LOSARTAN 50 MG TAB PO SCH (21:00)
[2023-12-14] MEDS ORDERED: ATORVASTATIN 10 MG TAB PO SCH (21:00)
[2023-12-15] MEDS ORDERED: NON FORMULARY DRUG (Semaglutide [Ozempic] 0.25 MG/0.368 ML Pen.Injctr) SQ SCH (09:16)
== END 2023-12-14 13:33 | disposition home health service (06) ==
LOC: OR 10:30 → 4SSUR 14:00 → OR 12-14 13:33
PROVIDERS: ATTEND Orthopaedic Surgery
CPT/HCPCS: 64448; 64999; 80048; 85025